=== PATIENT | female | born 1945 | race Caucasian/White ===

== ENCOUNTER 2019-12-05 13:39 | Outpatient (CLI) | payer MEDICARE, BC, SELFPAY ==
--- NOTE | 2019-12-05 13:48 | MM_ITS ---
WS: [id number] SCREENING DIGITAL MAMMOGRAM WITH CAD HISTORY: SCREENING COMPARISON: 10/27/2018, 10/20/2017 and 09/18/2015 Bilateral CC and MLO views submitted. Computer aided detection analyzed. Breast composition: There are scattered areas of fibroglandular density. Seen on the LEFT MLO project ion is a 9 mm rounded nodule posteriorly in the upper breast. May be a benign lymph node. Not definit wale seen on prior studies and is slightly more rounded than a lymph node and without a fatty hilum. O therwise benign calcifications in each breast. MM/[id number] IMPRESSION: BI-RADS: 0-Incomplete: Need additional imaging evaluation FOLLOW UP: Need Additional Imaging LEFT breast: Spot compression views ( MLO). True ML. Ultrasound to follow if ab normality persists.
== END 2019-12-05 13:40 | disposition home or self-care (01) ==
LOC: RADSHAW 13:45
PROVIDERS: PCP Nurse Practitioner Family; Visit Provider Nurse Practitioner Family
DX: Z12.31 Encounter for screening mammogram for malignant neoplasm of breast (principal); N63.20 Unspecified lump in the left breast, unspecified quadrant
CPT/HCPCS: 77067

== ENCOUNTER 2019-12-21 14:06 | Outpatient (CLI) | payer MEDICARE, BC, SELFPAY ==
--- NOTE | 2019-12-21 14:14 | US_ITS ---
WS: [id number] ADDITIONAL VIEWS LEFT MAMMOGRAM LEFT BREAST ULTRASOUND HISTORY: ABNORMAL MAMMOGRAM COMPARISON: 12/05/2019 and 10/27/2018 and 10/20/2017 LEFT MAMMOGRAM: Spot compression views and true ML. Additional views were obtained. Soft tissue nodule against the posterior LEFT chest wall is probably a lymph node. There is now evidence for fatty hilum. The lymph node remains rounded. Ultrasound will also be performed. LEFT BREAST ULTRASOUND 2-D and color Doppler imaging submitted. Ultrasound directed to the superior breast towards the axillary tail. There are several benign-appear ing lymph nodes in the axillary tail. No suspicious mass or shadowing. US/US breast LT limited* [id number] IMPRESSION: BI-RADS: 2-Benign FOLLOW UP: 1 Year Follow-up
== END 2019-12-21 14:07 | disposition home or self-care (01) ==
LOC: RADSHAW 14:10
PROVIDERS: PCP Nurse Practitioner Family; Visit Provider Nurse Practitioner Family
DX: R92.8 Other abnormal and inconclusive findings on diagnostic imaging of breast (principal); N63.20 Unspecified lump in the left breast, unspecified quadrant
CPT/HCPCS: 76642; 77065

== ENCOUNTER 2021-01-03 13:47 | Outpatient (CLI) | payer MEDICARE, BC, SELFPAY ==
--- NOTE | 2021-01-03 13:53 | MM_ITS ---
WS: [id number] BILATERAL SCREENING DIGITAL MAMMOGRAM WITH CAD HISTORY: SCREEN COMPARISON: 12/21/2019 and 12/05/2019 and 10/27/2018 Bilateral CC and MLO views submitted. Computer aided detection analyzed. Breast composition: There are scattered areas of fibroglandular density. No suspicious masses, microc alcifications or architectural distortion. Benign calcifications in each breast. MM/[id number] IMPRESSION: BI-RADS: 2-Benign FOLLOW UP: 1 Year Follow-up
== END 2021-01-03 13:48 | disposition home or self-care (01) ==
LOC: RADSHAW 13:48
PROVIDERS: PCP Nurse Practitioner Family; Visit Provider Nurse Practitioner Family
DX: Z12.31 Encounter for screening mammogram for malignant neoplasm of breast (principal)
CPT/HCPCS: 77067

== ENCOUNTER 2022-07-02 04:48 | Emergency (ER) | payer MEDICARE, BC, SELFPAY ==
--- NOTE | 2022-07-02 04:54 | XRR_ITS ---
PROCEDURE INFORMATION: Exam: XR Chest Exam date and time: 07/02/2022 4:59 AM Age: 76 years old Clinical indication: Chest pressure; Patient HX: C/O chest pain; Additional info: Cp TECHNIQUE: Imaging protocol: Radiologic exam of the chest. Views: 1 view. COMPARISON: No relevant prior studies available. FINDINGS: Lungs: Unremarkable. No consolidation. Pleural spaces: Unremarkable. No pleural effusion. No pneumothorax. Heart/Mediastinum: Unremarkable. No cardiomegaly. Bones/joints: Unremarkable. XR/XR chest 1V portable [id number] IMPRESSION: No acute findings.
[2022-07-02 04:55] VITALS: BP 184/88; PULSE 96; RESP 18; TEMP 36.4; O2SAT 93; BMI 32.1
[2022-07-02 05:00] VITALS: BP 179/90; PULSE 93; RESP 19; O2SAT 92
--- NOTE | 2022-07-02 05:02 | ED_ITS ---
Documented by User: Saritha Wilkins MD 07/02/22 18:25 HPI - Chest Pain General: Chief Complaint: Chest Pain Stated Complaint: Chest Pains\Shingles Shot today Time Seen by Provider: 07/02/22 04:51 Source: patient Mode of arrival: ambulatory Limitations: no limitations History of Present Illness: 76-year-old female states she received her shingles vaccine yesterday at 3 PM states that tonight she had woken up 2 hours ago she states she had felt like she had chills along with some shakes she is also been having some episodes of chest pain states she had 4-5 episodes since 3 lasting anywhere from a few minutes up to 20 states the pains of been, mild pain in the center of her chest denies any fever cough denies any worsening proving factors she is currently pain-free. Associated symptoms: Deny abdominal pain, dyspnea, nausea or vomiting Review of Systems Const: Reports: chills, body aches and fatigue ENMT: Denies: throat pain or dental pain Card: Reports: chest pain Resp: Denies: dyspnea GI: Denies: abdominal pain, nausea, vomiting or diarrhea Musc: Denies: neck pain or back pain Skin/Breast: Denies: rash Neuro: Denies: headache(s) PFSH ED PFSH: Medical History No pertinent past medical history Social History Substance/Drug Use: never Physical Exam Const: COMMON NORMALS: no acute distress, patient oriented x3 and healthy appearing HENMT: COMMON NORMALS: normocephalic and atraumatic HEAD & SCALP: normocephalic and atraumatic Eye: COMMON NORMALS: conjunctivae normal CONJUNCTIVA: Yes conjunctivae normal Neck/C-Spine: COMMON NORMALS: full ROM and supple Chest: COMMONS NORMALS: normal inspection of the chest and normal palpation of entire chest wall Resp: COMMON NORMALS: normal respiratory effort, No retractions, No use of accessory muscles and clear to auscultation bilaterally AUSCULTATION: clear to auscultation bilaterally Cardio: COMMON NORMALS: regular rate, regular rhythm and No murmurs present (Cardio) RATE: regular rate RHYTHM: regular rhythm GI: COMMON NORMALS: Normal to inspection, nondistended, normoactive bowel cooper nds present, Soft to palpation, non-tender and no masses PALPATION: Yes Soft to palpation Extremity: COMMON NORMALS: normal to inspection and full ROM Neuro: COMMON NORMALS: patient oriented x3, moves all extremities and no focal motor deficits Psych: COMMON NORMALS: mental status grossly normal, Normal thought process present and cooperative THOUGHT PROCESS: Normal thought process present Skin: COMMON NORMALS: no rashes or lesions noted and no wounds GENERAL SKIN EXAM: no rashes or lesions noted Course Vital Signs: Vital signs: Vital Signs Temperature 97.6 F 07/02/22 04:55 Pulse Rate 74 07/02/22 06:00 Respiratory Rate 16 07/02/22 06:00 Blood Pressure 147/68 07/02/22 06:00 Pulse Oximetry 93 07/02/22 06:00 Oxygen Delivery Me thod Room Air 07/02/22 06:00 MDM - Chest Pain Lab Data 07/02/22 05:09 07/02/22 05:09 Radiology Impressions Chest X-Ray 07/02/22 04:54 IMPRESSION: No acute findings. Laboratory Results WBC 9.5 10^3/uL (4.0-10.0) 07/02/22 05:09 RBC 5.11 10^6/uL (4.1-5.3) 07/02/22 05:09 Hgb 15.4 g/dL (11.5-15.3) H 07/02/22 05:09 Hct 46.3 % (37.0-47.0) 07/02/22 05:09 MCV 90.6 fl (81-99) 07/02/22 05:09 MCH 30.1 pg (28.0-34.0) 07/02/22 05:09 MCHC 33.3 g/dL (30.0-36.0) 07/02/22 05:09 RDW 12.8 % (12.1-15.1) 07/02/22 05:09 Plt Count 188 10^3/cmm (130-400) 07/02/22 05:09 MPV 9.0 fL (7.4-10.4) 07/02/22 05:09 Neut % (Auto) 68.9 % 07/02/22 05:09 Lymph % (Auto) 17.9 % 07/02/22 05:09 Cassia % (Auto) 7.7 % 07/02/22 05:09 Eos % (Auto) 4.6 % 07/02/22 05:09 Baso % (Auto) 0.6 % 07/02/22 05:09 Neut # (Auto) 6.55 10^3/uL (1.8-7.7) 07/02/22 05:09 Lymph # (Auto) 1.7 10^3/uL (0.8-4.8) 07/02/22 05:09 Cassia # (Auto) 0.7 10^3/uL (0.2-0.9) 07/02/22 05:09 Eos # (Auto) 0.4 10^3/uL (0.0-0.8) 07/02/22 05:09 Baso # (Auto) 0.1 10^3/uL (0.0-0.1) 07/02/22 05:09 Nucleated RBC % (auto) 0 % 07/02/22 05:09 Nucleated RBCs # 0.0 /100WBC 07/02/22 05:09 PT 13.20 SECONDS (12.1-14.9) 07/02/22 05:09 INR 0.98 (0.8-1.2) 07/02/22 05:09 Sodium 133 mmol/L (136-145) L 07/02/22 05:09 Potassium 3.6 mmol/L (3.5-5.1) 07/02/22 05:09 Chloride 95 mmol/L (98-107) L 07/02/22 05:09 Carbon Dioxide 24 mmol/L (22-29) 07/02/22 05:09 Anion Gap 17.6 (5-19) 07/02/22 05:09 BUN 18 mg/dL (8-23) 07/02/22 05:09 Creatinine 0.6 mg/dL (0.5-0.9) 07/02/22 05:09 GFR Calculation Not Reportable 07/02/22 05:09 Glucose 205 mg/dL (65-115) H 07/02/22 05:09 Calculated Osmolality 284 mOsm/kg (285-295) L 07/02/22 05:09 Calcium 8.4 mg/dL (8.5-10.5) L 07/02/22 05:09 Total Bilirubin 1.0 mg/dL (0.15-1.2) 07/02/22 05:09 AST 21 U/L (0-32) 07/02/22 05:09 ALT 22 U/L (0-33) 07/02/22 05:09 Alkaline Phosphatase 75 U/L (35-105) 07/02/22 05:09 Troponin T Baseline 10 ng/L (0-10) 07/02/22 05:09 Troponin T 120 Minute 9.26 ng/L (0-10) 07/02/22 06:47 Delta Troponin T -0.74 ABS# (0-10) L 07/02/22 06:47 Total Protein 6.9 g/dL (6.6-8.7) 07/02/22 05:09 Albumin 4.2 g/dL (3.5-5.2) 07/02/22 05:09 Globulin 2.7 g/dL (1.3-4.6) 07/02/22 05:09 EKG Data EKG 1: I personally reviewed and interpreted this EKG as follows: EKG interpretation date: 07/02/22 EKG interpretation time: 05:04 Interpretation: nsr hr [address] elevation qrs 129 qtc 427 Discharge Plan Discharge Patient Disposition: Home Clinical Impression: Chest pain, Elevated blood pressure reading Prescriptions: New isosorbide mononitrate 30 mg tablet extended release 24 hr 30 mg PO DAILY Qty: 30 0RF No Action furosemide 40 mg tablet 40 mg PO DAILY PRN (Reason: Edema) glipizide 10 mg tablet extended release 24hr 20 mg PO QAM cyanocobalamin (vitamin B-12) 1,000 mcg/mL solution 1,000 mcg IM Q30D Flovent HFA 220 mcg/actuation HFA aerosol inhaler 2 puff INHALATION BID metronidazole 0.75 % gel 1 applic TOPICAL BID Xigduo XR 5-1,000 mg tablet, IR - ER, biphasic 24hr 1 tab PO DAILY Discharge Orders: Discharge ED (Routine); Ordered 07/02/22 Ordered By: Vlad Ramires Referrals: Shirley Chen APRN [Primary Care Provider] - Discharge Diet: Usual diet Discharge Activity: Resume usual activity Patient Instructions: Opioid Safety, Pain Management Activity Restrictions/Additional Instructions: You were seen today for chest pain. Your EKG did not show any acute changes and cardiac enzymes are negative. Recommend that you start isosorbide mononitrate for elevated blood pressure and protection of the heart. Normally we would recommend aspirin but since you had stated you are allergic we will not be able to do that. We will set you up for an outpatient Lexiscan sestamibi stress test. You should follow-up with your primary care doctor after labs completed. If you have further chest pain or discomfort return to the emergency room. Sign Out Sign Out Data: Patient Sign Out occurred on 07/02/22 at 06:21. Patient's care was discussed, and care was transferred from to Vlad Ramires DO. Coding Level of Care Code ED Nursery School Attendant for Chg Fwd Documented by User: Vlad Ramires DO 07/02/22 08:26 HPI - Chest Pain General: Chief Complaint: Chest Pain Stated Complaint: Chest Pains\Shingles Shot today Time Seen by Provider: 07/02/22 04:51 [facility] ED PFSH: Medical History No pertinent past medical history Social History Substance/Drug Use: never Course Vital Signs: Vital signs: Vital Signs Temperature 97.6 F 07/02/22 04:55 Pulse Rate 74 07/02/22 06:00 Respiratory Rate 16 07/02/22 06:00 Blood Pressure 147/68 07/02/22 06:00 Pulse Oximetry 93 07/02/22 06:00 Oxygen Delivery Me thod Room Air 07/02/22 06:00 MDM - Chest Pain Medical Decision Making 76-year-old female care assumed at change of shift from Dr. Wilkins. She has not had any further episodes of chest discomfort. She has not had any episodes prior to last night. EKG does not show any acute changes. Her blood pressure is elevated when she arrives. I am going to start her on isosorbide mononitrate 30 mg daily. Would like to start the patient on aspirin however she tells me she is allergic to it. Also note she has a butterfly rash she has been being tr eated for rosacea with oral and topical medications. Did not see it initially encouraged her to follow-up with her primary care doctor midlevel and have at least a bare minimum screening done for rheumatologic disorders as a cause of the rash. We will set her up for an outpatient Lexiscan sestamibi stress test. Follow-up with your primary care doctor. Return if she has further problems. Medical Records I reviewed the patient's medical records. Lab Data I reviewed the patient's lab results. 07/02/22 05:09 07/02/22 05:09 Radiology Impressions Chest X-Ray 07/02/22 04:54 IMPRESSION: No acute findings. Laboratory Results WBC 9.5 10^3/uL (4.0-10.0) 07/02/22 05:09 RBC 5.11 10^6/uL (4.1-5.3) 07/02/22 05:09 Hgb 15.4 g/dL (11.5-15.3) H 07/02/22 05:09 Hct 46.3 % (37.0-47.0) 07/02/22 05:09 MCV 90.6 fl (81-99) 07/02/22 05:09 MCH 30.1 pg (28.0-34.0) 07/02/22 05:09 MCHC 33.3 g/dL (30.0-36.0) 07/02/22 05:09 RDW 12.8 % (12.1-15.1) 07/02/22 05:09 Plt Count 188 10^3/cmm (130-400) 07/02/22 05:09 MPV 9.0 fL (7.4-10.4) 07/02/22 05:09 Neut % (Auto) 68.9 % 07/02/22 05:09 Lymph % (Auto) 17.9 % 07/02/22 05:09 Cassia % (Auto) 7.7 % 07/02/22 05:09 Eos % (Auto) 4.6 % 07/02/22 05:09 Baso % (Auto) 0.6 % 07/02/22 05:09 Neut # (Auto) 6.55 10^3/uL (1.8-7.7) 07/02/22 05:09 Lymph # (Auto) 1.7 10^3/uL (0.8-4.8) 07/02/22 05:09 Cassia # (Auto) 0.7 10^3/uL (0.2-0.9) 07/02/22 05:09 Eos # (Auto) 0.4 10^3/uL (0.0-0.8) 07/02/22 05:09 Baso # (Auto) 0.1 10^3/uL (0.0-0.1) 07/02/22 05:09 Nucleated RBC % (auto) 0 % 07/02/22 05:09 Nucleated RBCs # 0.0 /100WBC 07/02/22 05:09 PT 13.20 SECONDS (12.1-14.9) 07/02/22 05:09 INR 0.98 (0.8-1.2) 07/02/22 05:09 Sodium 133 mmol/L (136-145) L 07/02/22 05:09 Potassium 3.6 mmol/L (3.5-5.1) 07/02/22 05:09 Chloride 95 mmol/L (98-107) L 07/02/22 05:09 Carbon Dioxide 24 mmol/L (22-29) 07/02/22 05:09 Anion Gap 17.6 (5-19) 07/02/22 05:09 BUN 18 mg/dL (8-23) 07/02/22 05:09 Creatinine 0.6 mg/dL (0.5-0.9) 07/02/22 05:09 GFR Calculation Not Reportable 07/02/22 05:09 Glucose 205 mg/dL (65-115) H 07/02/22 05:09 Calculated Osmolality 284 mOsm/kg (285-295) L 07/02/22 05:09 Calcium 8.4 mg/dL (8.5-10.5) L 07/02/22 05:09 Total Bilirubin 1.0 mg/dL (0.15-1.2) 07/02/22 05:09 AST 21 U/L (0-32) 07/02/22 05:09 ALT 22 U/L (0-33) 07/02/22 05:09 Alkaline Phosphatase 75 U/L (35-105) 07/02/22 05:09 Troponin T Baseline 10 ng/L (0-10) 07/02/22 05:09 Troponin T 120 Minute 9.26 ng/L (0-10) 07/02/22 06:47 Delta Troponin T -0.74 ABS# (0-10) L 07/02/22 06:47 Total Protein 6.9 g/dL (6.6-8.7) 07/02/22 05:09 Albumin 4.2 g/dL (3.5-5.2) 07/02/22 05:09 Globulin 2.7 g/dL (1.3-4.6) 07/02/22 05:09 Discharge Plan Discharge Patient Disposition: Home Clinical Impression: Chest pain, Elevated blood pressure reading Prescriptions: New isosorbide mononitrate 30 mg tablet extended release 24 hr 30 mg PO DAILY Qty: 30 0RF No Action furosemide 40 mg tablet 40 mg PO DAILY PRN (Reason: Edema) glipizide 10 mg tablet extended release 24hr 20 mg PO QAM cyanocobalamin (vitamin B-12) 1,000 mcg/mL solution 1,000 mcg IM Q30D Flovent HFA 220 mcg/actuation HFA aerosol inhaler 2 puff INHALATION BID metronidazole 0.75 % gel 1 applic TOPICAL BID Xigduo XR 5-1,000 mg tablet, IR - ER, biphasic 24hr 1 tab PO DAILY Discharge Orders: Discharge ED (Routine); Ordered 07/02/22 Ordered By: Vlad Ramires Referrals: Shirley Chen APRN [Primary Care Provider] - Discharge Diet: Usual diet Discharge Activity: Resume usual activity Patient Instructions: Opioid Safety, Pain Management Activity Restrictions/Additional Instructions: You were seen today for chest pain. Your EKG did not show any acute changes and cardiac enzymes are negative. Recommend that you start isosorbide mononitrate for elevated blood pressure and protection of the heart. Normally we would recommend aspirin but since you had stated you are allergic we will not be able to do that. We will set you up for an outpatient Lexiscan sestamibi stress test. You should follow-up with your primary care doctor after labs completed. If you have further chest pain or discomfort return to the emergency room. Sign Out Sign Out Data: Patient Sign Out occurred on 07/02/22 at 06:21. Patient's care was discussed, and care was transferred from to Vlad Ramires DO. Coding Level of Care Code ED Nursery School Attendant for Bonifacio Hilario
--- NOTE | 2022-07-02 05:04 | ECG_ITS ---
[facility] Test Date: 2022-07-02 Pat Name: Oz Quintero Department: Room: Gender: Female Financial Consultant: : 1945 Requested By: Saritha Wilkins Order Number: [id number] Reading MD: Kerwin Watt M.D. Measurements Intervals [place] Rate: 90 P: 72 NC: 165 QRS: 35 QRSD: 129 T: -4 QT: 380 QTc: 465 Interpretive Statements SINUS RHYTHM INDETERMINATE AXIS RIGHT BUNDLE BRANCH BLOCK [120+ ms QRS DURATION, UPRIGHT V1, 40+ ms S IN I/aVL/V4/V5/V6] SEPTAL MYOCARDIAL INFARCTION , PROBABLY OLD [40+ ms Q WAVE IN V1/V2] MODERATE T-WAVE ABNORMALITY, CONSIDER LATERAL ISCHEMIA [-0.1+ mV T-WAVE IN I/aVL/V5/V6] MODERATE T-WAVE ABNORMALITY, CONSIDER INFERIOR ISCHEMIA [-0.1+ mV T-WAVE IN II/aVF] No previous ECG available for comparison Electronically Signed On 07-02-2022 16:14:01 CDT by Kerwin Watt M.D. [id number]
[2022-07-02 05:14] LABS: Basophils # 0.1 10^3/uL (0.0-0.1); Basophils % 0.6 %; Eosinophils # 0.4 10^3/uL (0.0-0.8); Eosinophils % 4.6 %; Hematocrit 46.3 % (37.0-47.0); Hemoglobin 15.4 g/dL (11.5-15.3); Lymphocytes # 1.7 10^3/uL (0.8-4.8); Lymphocytes % 17.9 %; Mean Corpuscular HGB Conc 33.3 g/dL (30.0-36.0); Mean Corpuscular Hemoglobin 30.1 pg (28.0-34.0); Mean Corpuscular Volume 90.6 fl (81-99); Monocytes # 0.7 10^3/uL (0.2-0.9); Monocytes % 7.7 %; Neutrophils # 6.55 10^3/uL (1.8-7.7); Neutrophils % 68.9 %; Nucleated Red Blood Cells % 0 %; Platelet Count 188 10^3/cmm (130-400); Red Blood Count 5.11 10^6/uL (4.1-5.3); Red Cell Distribution Width 12.8 % (12.1-15.1); White Blood Count 9.5 10^3/uL (4.0-10.0)
[2022-07-02 05:26] LABS: INR 0.98 (0.8-1.2)
[2022-07-02 05:33] LABS: Alanine Aminotransferase 22 U/L (0-33); Albumin Level 4.2 g/dL (3.5-5.2); Alkaline Phosphatase 75 U/L (35-105); Anion Gap 17.6 (5-19); Aspartate Amino Transferase 21 U/L (0-32); Blood Urea Nitrogen 18 mg/dL (8-23); Calcium 8.4 mg/dL (8.5-10.5); Carbon Dioxide 24 mmol/L (22-29); Chloride 95 mmol/L (98-107); Globulin 2.7 g/dL (1.3-4.6); Glucose 205 mg/dL (65-115); Osmolality Calculated 284 mOsm/kg (285-295); Potassium 3.6 mmol/L (3.5-5.1); Sodium 133 mmol/L (136-145); Total Protein 6.9 g/dL (6.6-8.7); Troponin(5th) Baseline 10 ng/L (0-10)
[2022-07-02 06:00] VITALS: BP 147/68; PULSE 74; RESP 16; O2SAT 93
--- NOTE | 2022-07-02 06:40 | ECG_ITS ---
[facility] Test Date: 2022-07-02 Pat Name: Oz Quintero Department: Room: Gender: Female Admitting Manager: : 1945 Requested By: Saritha Wilkins Order Number: [id number] Reading MD: Kerwin Watt M.D. Measurements Intervals [place] Rate: 73 P: 79 ID: [id number] QRS: 25 QRSD: 133 T: 55 QT: 442 QTc: 488 Interpretive Statements SINUS RHYTHM INDETERMINATE AXIS RIGHT BUNDLE BRANCH BLOCK [120+ ms QRS DURATION, UPRIGHT V1, 40+ ms S IN I/aVL/V4/V5/V6] POSSIBLE SEPTAL MYOCARDIAL INFARCTION , PROBABLY OLD [30 ms Q WAVE IN V1/V2] Compared to ECG 07/02/2022 05:04:53 T-wave abnormality no longer present Possible ischemia no longer present Myocardial infarct finding still present Electronically Signed On 07-02-2022 16:17:16 CDT by Kerwin Watt M.D. [id number]
[2022-07-02 07:22] LABS: Troponin 5 2HR 9.26 ng/L (0-10)
[2022-07-02 07:26] LABS: Troponin 5 2HR Delta -0.74 ABS# (0-10)
== END 2022-07-02 09:12 | disposition home or self-care (01) ==
PROVIDERS: Emergency Medicine; Emergency Provider Family Medicine; PCP Nurse Practitioner Family
DX: R07.9 Chest pain, unspecified (principal); R03.0 Elevated blood-pressure reading, without diagnosis of hypertension
CPT/HCPCS: 71045; 80053; 84484; 85025; 85610; 93005; 99285

== ENCOUNTER 2022-09-22 10:44 | Outpatient (CLI) | payer MEDICARE, BC, SELFPAY ==
--- NOTE | 2022-09-22 11:34 | MM_ITS ---
WS: [id number] VIEWS: MLO and CC views both breasts. 3D digital tomosynthesis is also included in this exam. Comparison made with prior exam of 09/18/2015, 10/27/2018, 12/05/2019, 01/03/2021.. Findings: There was no sign of mass, architectural distortion or suspicious calcification in either breast. Th ere are scattered areas of fibroglandular density MM/[id number] Impression: BI-RADS: 2-Benign finding. FOLLOW-UP: 1 Year Follow-up This mammogram was also analyzed by the Computer Aided Detection System R2 Imag e Earth Science Technician.
== END 2022-09-22 10:45 | disposition home or self-care (01) ==
PROVIDERS: PCP Nurse Practitioner Family; Visit Provider Nurse Practitioner Family
DX: Z12.31 Encounter for screening mammogram for malignant neoplasm of breast (principal)
CPT/HCPCS: 77063; 77067

== ENCOUNTER 2024-09-24 08:36 | Emergency (ER) | payer MEDICARE, BC, SELFPAY ==
[2024-09-24] VITALS (8 sets, daily range): BP systolic 150–191; BP diastolic 72–93; PULSE 79–95; RESP 17–20; TEMP 36.7; O2SAT 92–95; BMI 30.6
--- OUTSIDE RECORDS SUMMARY | 2024-09-24 08:44 | XMS_ITS | Patient Health Record ---
Author Organization [facility] Address [address] [place] [address] Care Team Providers Care Rectification Printer Name Role Phone April Albertina ALEGRE Primary Care Provider Unavail able Tamiko Dwyer Unavailable [phone] Allyn Crandall Unavailable [phone] Marly Romeo Unavailable [phone] Allergies Allergen (clinical drug ingredient) Drug/Non Drug Allergy documented on EMR Reaction Allergy Type Onset Date Status aspirin Aspirin , Urticaria (disorder) , Drug Allergy Active cefazolin Cefazolin , Drug Allergy Active ciprofloxacin Ciprofloxacin , , Drug Allergy Active erythromycin Erythromycin , , Drug Allergy A ctive Penicillin Unknown Drug Allergy Active Substance with sulfonamide structure and antibacterial mechanism of action (substance) Sulfa Antibiotics Unknown Drug Allergy Active Results Component Value Reference Range Flag Notes Glucometer WBG--[id number] Reviewed date:11/09/2023 03:36:04 PM Interpretation: Performing Lab: Notes/Report: Glucometer WBG 123 65-110 MG/DL HI See Docu mentation~Meter: [id number]~Mold Carpenter: [id number] TEJ RUDD Reason For Referral Reason COPD Diagnosis 1 Chronic obstructive pulmonary disease, unspecified COPD type (J44.9) Referring Provider First Name [place] Referring Provider Last Name [facility] Referring Provider Speciality Urgent Car e Referred Organization [facility] Referred Provider Tamiko Dwyer Referred Address [address] [place] [phone], Referred Provider Specialty Nurse Aaliyah ribeiro Referral Priority Routine Medications Medication SIG (Take, Route, Frequency, Duration) Notes Start Date End Date Status glipiZIDE ER 10 MG Tablet Extended Release 24 Hour TAKE ONE TABLET BY MOUTH TWICE DAILY AT breakfast AND LUNCH Oral; Duration: 90 Active Reglan 10 MG Tablet 1 tablet as directed Orally once; Duration: 1 day 10/25/2023 Active Xigduo XR 5-1000 MG Tablet Extended Release 24 Hour TAKE ONE TABLET BY MOUTH ONCE a DAY Oral; Duration: 30 Active EpiPen 2-Marcello 0.3 MG/0.3ML Solution Auto-injector as directed Injection as directed prn severe allergy reaction; Duration: 1 days 09/16/2023 Active Cyanocobalamin 1000 MCG/ML Solution INJECT 1ML INTRAMUSCULARLY MONTHLY Injection; Duration: 90 Active Immunizations Vaccine Route Administration Date Status Comme nts Influenza (whole), CPT 87653 Inactive Unknown 12/19/2016 Administered Influenza (whole), CPT 64804 Inactive Unknown 01/01/2017 Administered Influenza (whole), CPT 51008 Inactive Unknown 01/04/2017 Administered Influenza (whole), CPT 96143 Inactive Unknown 12/20/2017 Administered Influenza (whole), CPT 19887 Inactive Unknown 11/15/2018 Administered Influenza, high dose seasonal Unknown 12/18/2015 Admini stered Pneumococcal conjugate PCV 13 Unknown 12/24/2014 Admini stered Social History Tobacco Use: Social History Observation Description Date Details (start date - stop date) Never Smoker NA - NA Social History Drugs/Alcohol: Social Info Question Answer Notes Alcohol Screen (Audit-C) Did you have a drink containing alcohol in the past year? No Points 0 Interpretation Negative Tobacco Use: Social Info Question Answer Notes xTobacco Use/Smoking Are you a nonsmoker Additional Details Category Social Info Options Details zzMigrated Social History Migrated Social History Smoking Status:Never smoked tobacco (finding) Problems Problem Type SNOMED Code ICD Code Onset Dates Problem Status W/U Status Risk Notes Problem COPD - Chronic obstructive pulmonary disease (93723335) Chronic obstructive pulmonary disease, unspecified COPD type (J44.9) Active confirmed Problem Vitamin B 12 deficiency (E53.8) Active confirmed Problem History of adenomatous polyp of colon (059498149) History of adenomatous polyp of colon (Z86.010) Active confirmed Vital Signs Heart Rate 75 /min 10/25/2023 Temperature 96.6 degrees Fahrenheit 10/25/2023 Respiratory Rate 18 /min 10/25/2023 Height-cm 163.83 cm 10/25/2023 Oximetry 96 % 10/25/2023 Blood pressure diastolic 64 mm Hg 10/25/2023 Weight-kg 88.81 kg 10/25/2023 Height 64.5 in 10/25/2023 Blood pressure systolic 118 mm Hg 10/25/2023 Weight 195.8 lbs 10/25/2023 BMI 33.09 kg/m2 10/25/2023 Encounters Encounter Location Date Provider Diagnosis [facility] [address] [place] [address] 11/09/2023 Allyn Crandall [facility] [address] [place] [address] 10/25/2023 Marly Romeo Preprocedural examination Z01.818 ; Screening for colon cancer Z12.11 ; History of adenomatous polyp of colon Z86.010 and Family history of colon cancer Z80.0 [facility] [address] [place] [address] 11/01/2023 Tamiko Batterton Vitamin B 12 deficiency E53.8 [facility] [address] [place] [address] 12/15/2023 Tamiko Batterton Vitamin B 12 deficiency E53.8 [facility] [address] [place] [address] 01/31/2024 Tamiko Batterton Vitamin B 12 deficiency E53.8 [facility] [address] [place] [address], [place] [address] 08/08/2024 Tamiko Batterton Vitamin B 12 deficiency E53.8 [facility] [address] [place] [address] 11/15/2023 Allyn Crandall Assessments Encounter Date Diagnosis (ICD Code) Assessment Notes Treatment Notes Treatment Clinical Notes Section Notes 10/25/2023 Preprocedural examination (ICD-10 - Z01.818) The patient has a prerequisite risk factors for development of colon cancer. I have discussed the options of diagnostic testing with their advantages and disadvantages. I have recommended da screening colonoscopy with possible biopsy and polypectomy. Risks and Benefits: The benefits, risks, and complications were presented to pt. The patient is aware of the risk of bleeding, perforation, infection, and anesthetic complications related to colonoscopy. The patient is aware that although colonoscopy is an accurate procedure, it does have some limitations. As a result, some lesions, including cancer may be missed by colonoscopy. Ample time was given to answer all questions. Instructions given for the bowel prep. Follow up will be determined after the colonoscopy. Refer back to PCP. 10/25/2023 Screening for colon cancer (ICD-10 - Z12.11) 11/01/2023 Vitamin B 12 deficiency (ICD-10 - E53.8) 12/15/2023 Vitamin B 12 deficiency (ICD-10 - E53.8) 01/31/2024 Vitamin B 12 deficiency (ICD-10 - E53.8) 08/08/2024 Vitamin B 12 deficiency (ICD-10 - E53.8) 10/25/2023 History of adenomatous polyp of colon (ICD-10 - Z86.010) 10/25/2023 Family history of colon cancer (ICD-10 - Z80.0) 10/25/2023 Other Colonoscopy: Before Your Procedure material was printed, Learning About Foods That Are Good Sources of Fiber material was printed Plan Of Treatment Pending Test Test Name Order Date Colonoscopy, High Risk Screening-[id number] 0 10/25/2023 Next Appt Details Provider Name:Ignacio Moise, 09/28/2024 10:20:00 AM, [address] [place] [address], [phone], Insurance Providers Payer Name Payer Address Payer Phone Subscriber Number Group Number Insured Name Patient Relationship to Insured Coverage Start Date Coverage End Date [place] Medicare [address] [place] [phone] [id number] Oz Quintero Self - patient is the insured BCBS Supplement [address] [place] [address] [id number] Oz Quintero Self - patient is the insured Medications Administered Medication Instructions Date of Administration Dosage Notes B12 10/21/2021 1000 ug [facility]: [id number] Medication brought with patient to clinic from pharmacy. Patient tolerated well, advised to wait 20 min at clinic B12 11/20/2021 1000 ug [facility]: [phone] Medication brought with patient to clinic from pharmacy. Patient tolerated well, advised to wait 20 min at clinic Cyanocobalamin 02/03/2022 1000 ug [facility]: [phone] Medication brought with patient to clinic from pharmacy. Patient tolerated well, advised to wait 20 min at clinic Benadryl 09/16/2023 50 [address] [facility] [phone] -21 pt tolerated well/instructed to wait 20 min DEPO-Medrol 09/16/2023 40 mg [facility] 96318-231 3-01 pt tolerated well/instructed to wait 20 min dexAMETHasone 09/16/2023 4 mg [facility] 90691-6 423-00 pt tolerated well/instructed to wait 20 min IM - Patient Supplied Med 05/06/2021 vitamin b12 given to patient in right deltoid, patient tolerated well, [id number] IM - Patient Supplied Med 06/09/2021 patient supplied own vitamin B12, given in Left deltoid, patient tolerated well. [id number] IM - Patient Supplied Med 07/14/2021 patient supplied cyanocobalamin 1000mcg/ml, given in left deloid patient tolerated well, [id number] IM - Patient Supplied Med 08/12/2021 VITAMIN B12 1000MCG/ML GIVEN IN LEFT DELTIOD, PATIENT TOLERATED WELL. [id number] IM - Patient Supplied Med 09/15/2021 cyanocobalamin 1000mcg given IM in left deltoid, patient tolerated well. [id number] IM - Patient Supplied Med 12/24/2021 vitamin b12 given IM in right arm patient tolerated well. [id number] IM - Patient Supplied Med 03/12/[address] [facility] [address]-1 0 Patient tolerated well IM - Patient Supplied Med 09/14/2022 vitamin b12 1000 mcg given IM in left deltoid. Patient tolerated well. IM - Patient Supplied Med 11/17/2022 vitamin b12 1000mcg/ml given IM in left deltoid. Patient tolerated well. [id number] exp-04/2025 IM - Patient Supplied Med 12/21/2022 1000mcg b12 give n in left deltoid. Patient tolerated well. IM - Patient Supplied Med 02/08/2023 Vitamin b12 1000 mcg given IM in left deltoid. Patient tolerated well. IM - Patient Supplied Med 06/15/2023 vitamin b12 2000 mcg given IM in left hip. Patient tolerated well. IM - Patient Supplied Med 08/05/2023 2000MCG OF VITAM IN B12 GIVEN im IN LEFT HIP. PATIENT TOLERATED WELL. IM - Patient Supplied Med 09/22/2023 1000mcg B12 give n IM in left deltoid. Patient tolerated well. IM - Patient Supplied Med 11/01/2023 vitamin b12 1000 mcg given IM in left deltoid. Patient tolerated well. IM - Patient Supplied Med 12/15/2023 vitamin b12 100m g given IM in left deltoid, patient supplied own injection. Patient tolerated well. IM - Patient Supplied Med 01/31/2024 vitamin [id number] cg/ml goven IM in right deltoid. Patient tolerated well. IM - Patient Supplied Med 08/08/2024 Vitamin B12 1000 mcg given IM in left deltoid, Patient tolerated well. Cyanocobalamin 05/07/2022 1000 ug Patient br ought vial from pharmacy for injection/pt tolerated well/instructed to wait 20 min Vitamin B12 08/04/2022 1000 ug Patient broug ht vial with her from pharmacy/tolerated well/instructed to wait 20 min Cyanocobalamin 04/30/2023 2000 ug vials brou ght to clinic by patient from pharmacy/pt tolerated well/instructed to wait 20 min Medical (General) History Medical History History ICD Code Arthritis Cobalamin deficiency Diabetes Disorder of the peripheral nervous syste m Hearing loss Asthma Seasonal allergic rhinitis Surgical History Surgery Date(Month/Year) CEIOLI both eyes Cholecystectomy 2017 Hysterectomy Thyroid Nodule Excision Hospitalization History Reason Date(Month/Year) child see surgery list
--- OUTSIDE RECORDS SUMMARY | 2024-09-24 08:44 | XMS_ITS | Patient Health Record ---
Author Organization [facility] [facility] Address [address] [place], [place] [address] Care Team Providers Care Primary Products Inspectors Name Role Phone Kaiden Ling MD Primary Care Provider Unavailrona Day MD, Chris Unavailable [phone] Nura Yañez DO Unavailable Allergies Allergen (clinical drug ingredient) Drug/Non Drug Allergy documented on EMR Reaction Allergy Type Onset Date Status ciprofloxacin Cipro Unknown Drug Allergy Act serafin Keflex Unknown Drug Allergy Active tetracycline tetracycline Unknown Drug Allergy A ctive erythromycin Unknown Drug Allergy Acti ve aspirin aspirin Unknown Drug Allergy Active penicillin Unknown Drug Allergy Active Reason For Referral No Information Medications Medication SIG (Take, Route, Frequency, Duration) Notes Start Date End Date Status montelukast 10 mg 1 tab orally once a day (in the evening) for 30 day(s) Active metFORMIN 500 mg 4 tabs orally once a day for 30 day(s) Active Flovent HFA CFC free 220 mcg/inh 1 puff inhaled 2 times a day for 30 day(s) Active nitrofurantoin macrocrystals 100 mg 1 cap orally BID, PRN bladder infection (prophylaxis) for 10 day(s) Active glipiZIDE 10 mg 1 tab orally BID for 30 day(s) Active Ventolin HFA CFC free 90 mcg/inh 2 puffs inhaled 4 times a day for 30 day(s) Active Problems Problem Type SNOMED Code ICD Code Onset Dates Problem Status W/U Status Risk Notes Problem Enthesopathy (98984927) Tendonitis, tendinitis (726.90) Active confirmed Problem Knee pain (39101286) Knee pain (719.46) Active confirmed Problem Displacement of lumbar intervertebral disc without myelopathy (62453888) Lumbar (w/out myelopathy) intervertebral disc disorder (722.10) Active confirmed Problem Lumbosacral spondylosis without myelopathy (57788487) Lumbosacral spondylosis without myelopathy (721.3) Active confirmed Problem Long-term drug therapy (358378539) LONG-TERM USE MEDS NEC (V58.69) Active confirmed r/o substance abuse Plan Of Treatment No Information Insurance Providers Payer Name Payer Address Payer Phone Subscriber Number Group Number Insured Name Patient Relationship to Insured Coverage Start Date Coverage End Date [employer] Medicare Part B Claims Department [address] [address] [place] [address] [id number] Oz Quintero Self - patient is the insured [facility] [address] [place] [address] [id number] Oz Quintero Self - patient is the insured Medical (General) History Medical History History ICD Code Diabetes mellitus Leg pain, left Frequent bladder infections Asthma Surgical History Surgery Date(Month/Year) Hysterectomy Dilation and curettage Thyroid nodule removed Hospitalization History Reason Date(Month/Year)
--- NOTE | 2024-09-24 08:50 | XRR_ITS ---
PROCEDURE INFORMATION: Exam: XR Chest Exam date and time: 09/24/2024 9:00 AM Age: 78 years old Clinical indication: Wheezing; Productive cough; SOB TECHNIQUE: Imaging protocol: Radiologic exam of the chest. Views: 2 views. COMPARISON: CR XR chest 1V portable [id number] 07/02/2022 4:59 AM FINDINGS: Lungs: Unremarkable. No consolidation. Pleural spaces: Unremarkable. No pleural effusion. No pneumothorax. Heart/Mediastinum: Unremarkable. No cardiomegaly. Bones/joints: Unremarkable. XR/XR chest 2V* [id number] IMPRESSION: No acute findings.
--- NOTE | 2024-09-24 08:52 | W.ED.SOB ---
HPI - SOB/Dyspnea General: Chief Complaint: Shortness of Breath/Dyspnea Stated Complaint: spells of trouble catching breath Time Seen by Provider: 09/24/24 08:43 History of Present Illness: HPI Narrative: This patient is a 78 year old presenting with asthma. She reports a history of asthma and says that it has been particularly bad this summer and especially for the past month. She has inhalers for atrovent and advair, but doesn't use them due to concern about side effects. She has had albuterol in the past, but not currently. She does not do anything else for her asthma. She is not a smoker. She denies history of COPD, CHF, CAD. She is diabetic. She does have medications that would imply a history of heart issues such as isosorbide mononitrate and furosemide. She denies fever, nausea, chest pain. She sleeps propped up at baseline due to her asthma, and has been coughing up pale yellow, thick phlegm. Related Data Home Medications ?Medication ?Instructions ?Recorded ?Confirmed cyanocobalamin (vitamin B-12) 1,000 mcg IM Q30D 07/02/22 09/24/24 1,000 mcg/mL injection solution dapagliflozin propaned 5 1 tab PO DAILY 07/02/22 09/24/24 mg-metformin ER 1,000 mg tablet, ext rel 24hr (Xigduo XR) furosemide 40 mg tablet 40 mg PO DAILY PRN Edema 07/02/22 09/24/24 glipizide 10 mg tablet, extended 20 mg PO QAM 07/02/22 09/24/24 release 24 hr metronidazole 0.75 % topical gel 1 applic topical BID 07/02/22 09/24/24 cholecalciferol (vitamin D3) 125 125 mcg PO DAILY 09/24/24 09/24/24 mcg (5,000 unit) tablet (Vitamin D3) Previous Rx's ?Medication ?Instructions ?Recorded albuterol sulfate 90 mcg/actuation 2 inh inhalation QID PRN shortness 09/24/24 aerosol inhaler (Ventolin HFA) of breath or wheezing #6.7 grams prednisone 20 mg tablet 20 mg PO BID 5 days #10 tabs 09/24/24 Allergies Allergy/AdvReac Type Severity Reaction Status Date / Time ciprofloxacin Allergy ALGY-Rash Verified 07/02/22 05:02 erythromycin base Allergy ALGY-Rash Verified 07/02/22 05:02 Penicillins Allergy ALGY-Rash Verified 07/02/22 05:02 Sulfa (Sulfonamide Allergy ALGY-Rash Verified 07/02/22 05:02 Antibiotics) PFSH ED PFSH: Medical History (Updated 09/24/24 @ 10:59 by Bertha Trevizo MD) No pertinent past medical history Social History Substance/Drug Use: never Physical Exam Const: COMMON NORMALS: no acute distress, patient oriented x3, no limitations and alert GENERAL APPEARANCE: cooperative and comfortable HENMT: HEAD & SCALP: normal to inspection FACE & SINUS: normal facial exam Eye: GENERAL EYE: appearance normal, both eyes and all related structures Neck/C-Spine: COMMON NORMALS: supple, no meningeal signs and no JVD Chest: COMMONS NORMALS: normal inspection of the chest Resp: OTHER: mildly increased work of breathing. Wheezing throughout all lung walter. Cardio: COMMON NORMALS: no JVD, regular rate, regular rhythm and No murmurs present (Cardio) RATE: regular rate RHYTHM: regular rhythm GI: COMMON NORMALS: Normal to inspection, nondistended, normoactive bowel sounds present, Soft to palpation and non-tender INSPECTION: Yes normal to inspection AUSCULTATION: Yes normoactive bowel sounds PALPATION: Yes Soft to palpation Back/Pelvis: COMMON NORMALS: thoracic and lumbar spine normal to inspection Extremity: COMMON NORMALS: normal to inspection NARRATIVE EXTREMITY EXAM: no peripheral edema Neuro: COMMON NORMALS: patient oriented x3, moves all extremities, no focal motor deficits and no sensory deficits noted SENSORIUM/ORIENTATION: Yes alert MENINGEAL SIGNS: Yes no meningeal signs Psych: COMMON NORMALS: mental status grossly normal, cooperative and normal affect Skin: COMMON NORMALS: no rashes or lesions noted and turgor normal GENERAL SKIN EXAM: no rashes or lesions noted and turgor normal Course Vital Signs: Vital signs: Vital Signs Temperature 98.0 F 09/24/24 08:45 Pulse Rate 83 09/24/24 11:26 Respiratory Rate 18 09/24/24 10:40 Blood Pressure 167/78 09/24/24 11:26 Pulse Oximetry 94 09/24/24 11:26 Oxygen Delivery Me thod Room Air 09/24/24 10:40 MDM - SOB/Dyspnea Medical Decision Making History of asthma. She is not compliant with treatments. She has been getting worse over the past month. She is wheezing today. After 1 DuoNeb her wheezing was improved but still present. After second DuoNeb she was clear and comfortable. She will be started on some prednisone as well. She is diabetic and we discussed that her blood sugar might go up with this. I did encourage her to use her Advair on a regular basis. I gave her an albuterol inhaler to use as needed. We discussed how each of these medications should be used including the prednisone. She was also encouraged to follow-up with her PCP for reevaluation this week to make sure she is improving. Lab Data 09/24/24 09:05 09/24/24 09:05 Labs/Radiology: Radiology Impressions Chest X-Ray 09/24/24 08:50 IMPRESSION: No acute findings. Laboratory Results WBC 7.17 10^3/uL (3.29-11.43) 09/24/24 09:05 RBC 5.22 10^6/uL (3.85-5.65) 09/24/24 09:05 Hgb 15.90 g/dL (11.27-16.99) 09/24/24 09:05 Hct 47.1 % (36-47) H 09/24/24 09:05 MCV 90.2 fl (85-98) 09/24/24 09:05 MCH 30.5 pg (27-33) 09/24/24 09:05 MCHC 33.8 g/dL (30-55) 09/24/24 09:05 RDW 12.8 % (12.1-15.1) 09/24/24 09:05 Plt Count 187 10^3/cmm (157-399) 09/24/24 09:05 MPV 9.4 fL (7.4-10.4) 09/24/24 09:05 Neut % (Auto) 61.7 % 09/24/24 09:05 Lymph % (Auto) 23.8 % 09/24/24 09:05 [place] % (Auto) 7.7 % 09/24/24 09:05 Eos % (Auto) 5.9 % 09/24/24 09:05 Baso % (Auto) 0.6 % 09/24/24 09:05 Neut # (Auto) 4.43 10^3/uL (1.8-7.7) 09/24/24 09:05 Lymph # (Auto) 1.7 10^3/uL (0.8-4.8) 09/24/24 09:05 [place] # (Auto) 0.6 10^3/uL (0.2-0.9) 09/24/24 09:05 Eos # (Auto) 0.4 10^3/uL (0.0-0.8) 09/24/24 09:05 Baso # (Auto) 0.0 10^3/uL (0.0-0.1) 09/24/24 09:05 Nucleated RBC % (auto) 0 % 09/24/24 09:05 Nucleated RBCs # 0.0 /100WBC 09/24/24 09:05 Sodium 139 mmol/L (136-145) 09/24/24 09:05 Potassium 4.1 mmol/L (3.5-5.1) 09/24/24 09:05 Chloride 100 mmol/L (98-107) 09/24/24 09:05 Carbon Dioxide 28 mmol/L (22-29) 09/24/24 09:05 Anion Gap 15.1 (5-19) 09/24/24 09:05 BUN 11 mg/dL (8-23) 09/24/24 09:05 Creatinine 0.6 mg/dL (0.5-0.9) 09/24/24 09:05 GFR Calculation Not Reportable 09/24/24 09:05 Glucose 142 mg/dL (65-115) H 09/24/24 09:05 Calculated Osmolality 290 mOsm/kg (285-295) 09/24/24 09:05 Calcium 9.5 mg/dL (8.5-10.5) 09/24/24 09:05 Total Bilirubin 0.6 mg/dL (0.15-1.2) 09/24/24 09:05 AST 22 U/L (0-32) 09/24/24 09:05 ALT 23 U/L (0-33) 09/24/24 09:05 Alkaline Phosphatase 89 U/L (35-105) 09/24/24 09:05 Troponin T Baseline 16 ng/L (0-10) H 09/24/24 09:05 NT-Pro-B Natriuret Pep 91 pg/mL (0-450) 09/24/24 09:05 Total Protein 7.1 g/dL (6.6-8.7) 09/24/24 09:05 Albumin 4.3 g/dL (3.5-5.2) 09/24/24 09:05 Globulin 2.8 g/dL (1.3-4.6) 09/24/24 09:05 All radiology interpretation(s) finalized by discharge Discharge Plan Discharge Patient Disposition: Home Clinical Impression: Asthma with exacerbation Condition: Stable Prescriptions: New prednisone 20 mg tablet 20 mg PO BID 5 Days Qty: 10 0RF albuterol sulfate [Ventolin HFA] 90 mcg/actuation HFA aerosol inhaler 2 inh inhalation QID PRN (Reason: shortness of breath or wheezing) Qty: 6.7 0RF No Action cholecalciferol (vitamin D3) [Vitamin D3] 125 mcg (5,000 unit) Tablet 125 mcg PO DAILY furosemide 40 mg tablet 40 mg PO DAILY PRN (Reason: Edema) glipizide 10 mg tablet extended release 24hr 20 mg PO QAM cyanocobalamin (vitamin B-12) 1,000 mcg/mL solution 1,000 mcg IM Q30D metronidazole 0.75 % gel 1 applic TOPICAL BID dapaglifloz propaned-metformin [Xigduo XR] 5-1,000 mg tablet, IR - ER, biphasic 24hr 1 tab PO DAILY Discharge Orders: Discharge ED (Routine); Ordered 09/24/24 Ordered By: Bertha Trevizo Referrals: Shirley Chen APRN [Primary Care Provider, Family Practice] Patient Instructions: Opioid Safety, Pain Management, Patient Portal & [place] Instructions Activity Restrictions/Additional Instructions: Follow up with your doctor this week for a recheck. Use the Advair daily as it will help to prevent wheezing. The Atrovent and Albuterol as used as needed to treat wheezing once it begins. Print Language: Citizen Of [place] Coding Level of Care Code ED Divisional Merchandising Manager for Bonifacio Hilario
--- NOTE | 2024-09-24 08:54 | ECG_ITS ---
[facility] Test Date: 2024-09-24 Pat Name: Oz Quintero Department: Room: Gender: Female Telesales Professional: : 1945 Requested By: Bertha Calvillo Order Number: [id number] Annette MD: David Yu M.D. Measurements Intervals [place] Rate: 90 P: 77 UT: 173 QRS: 90 QRSD: 134 T: 28 QT: 390 QTc: 479 Interpretive Statements SINUS RHYTHM INDETERMINATE AXIS RIGHT BUNDLE BRANCH BLOCK [120+ ms QRS DURATION, UPRIGHT V1, 40+ ms S IN I/aVL/V4/V5/V6] Nonspecific ST changes SEPTAL MYOCARDIAL INFARCTION , OF INDETERMINATE AGE [40+ ms Q WAVE IN V1/V2] Compared to ECG 07/02/2022 06:40:51 No significant changes Electronically Signed On 09-24-2024 18:34:29 CDT by David Yu M.D. [id number]
[2024-09-24 09:15] LABS: Hematocrit 47.1 % (36-47); Hemoglobin 15.90 g/dL (11.27-16.99); Mean Corpuscular HGB Conc 33.8 g/dL (30-55); Mean Corpuscular Hemoglobin 30.5 pg (27-33); Mean Corpuscular Volume 90.2 fl (85-98); Nucleated Red Blood Cells % 0 %; Platelet Count 187 10^3/cmm (157-399); Red Blood Count 5.22 10^6/uL (3.85-5.65); White Blood Count 7.17 10^3/uL (3.29-11.43)
[2024-09-24 09:38] LABS: Troponin(5th) Baseline 16 ng/L (0-10)
[2024-09-24 09:47] LABS: Alanine Aminotransferase 23 U/L (0-33); Albumin Level 4.3 g/dL (3.5-5.2); Alkaline Phosphatase 89 U/L (35-105); Anion Gap 15.1 (5-19); Aspartate Amino Transferase 22 U/L (0-32); Blood Urea Nitrogen 11 mg/dL (8-23); Calcium 9.5 mg/dL (8.5-10.5); Carbon Dioxide 28 mmol/L (22-29); Chloride 100 mmol/L (98-107); Creatinine Clr Calc Pharmacy 61.8350; Globulin 2.8 g/dL (1.3-4.6); Glucose 142 mg/dL (65-115); NT Pro B Type Natriuretic Pept 91 pg/mL (0-450); Osmolality Calculated 290 mOsm/kg (285-295); Potassium 4.1 mmol/L (3.5-5.1); Sodium 139 mmol/L (136-145); Total Protein 7.1 g/dL (6.6-8.7)
== END 2024-09-24 11:27 | disposition home or self-care (01) ==
PROVIDERS: Emergency Provider Emergency Medicine; PCP Nurse Practitioner Family
DX: J45.901 Unspecified asthma with (acute) exacerbation (principal)
CPT/HCPCS: 36415; 71046; 80053; 83880; 84484; 85025; 93005; 94640; 99285; J9999

== ENCOUNTER 2024-10-02 12:11 | Inpatient (IN) | payer MEDICARE, BC, SELFPAY ==
--- OUTSIDE RECORDS SUMMARY | 2024-09-25 08:30 | XMS_ITS ---
Author Organization [facility] Address [address] [place] [address] Care Team Providers Care Code Enforcement Supervisor Name Role Phone Ignacio Moise Primary Care Provider Tamiko Dwyer [phone] REASON FOR VISIT B-12 Inj Encounters Encounter Location Date Provider Diagnosis [facility] Office [address] [place] [address] 09/25/2024 Tamiko Dwyer Vitamin B 12 deficiency E53.8 Assessments Encounter Date Diagnosis (ICD Code) Assessment Notes Treatment Notes Treatment Clinical Notes Section Notes 09/25/2024 Vitamin B 12 deficiency (ICD-10 - E53.8) Plan Of Treatment Next Appt Details Provider Name:Ignacio Moise, 11/02/2024 10:20:00 AM, [address], [place], [address], Medications Administered Medication Instructions Date of Administration Dosage Notes IM - Patient Supplied Med 09/25/2024 vitamin b12 1000 mcg given IM in left arm, Patient tolerated well. Progress Notes * Oz BELL KDOB:[birth year] (78 yo F)Acc No.[id number]:09/25/2024 Progress Note Patient: Mckenzie Murphyreynold Annalisa Provider: Rajinder Dwyer APRN :1945 A ge:78 Y S ex:Female Date:09/25/2024 Address:[id number] Pcp:Albertina Chen APRN Check In:01:27 PM CSTCheck O ut:01:31 PM CARE TAKER Subjective: * Chief Complaints: * B -12 Inj Assessment: * Assessment: 1. V itamin B 12 deficiency - E53.8 (Primary) Plan: * Therapeutic Injections: IM - Patient Supplied Med (Route: Intramuscular) given by Jen German on left deltoid * Procedure Codes: 9 6372 IM - Patient Supplied Med Billing Information: * Procedure Codes: 36638 IM - Patient Supplied Med. * Sign off status: Completed true * Provider: Rajinder Dwyer APRN Date: 09/25/2024 Generated for Ben severino/Sg/Sophiaitting on: 10/02/2024 12:13 PM CDT
--- OUTSIDE RECORDS SUMMARY | 2024-09-28 05:20 | XMS_ITS ---
Author Organization [facility] Address [address] [place] [address] Care Team Providers Care Car Dropper Name Role Phone MoiseIgnacio feldman Primary Care Provider Allergies Allergen (clinical drug ingredient) Drug/Non Drug Allergy documented on EMR Reaction Allergy Type Onset Date Status aspirin Aspirin , Urticaria (disorder) , Drug Allergy Active cefazolin Cefazolin , Drug Allergy Active ciprofloxacin Ciprofloxacin , , Drug Allergy Active erythromycin Erythromycin , , Drug Allergy A ctive Penicillin Unknown Drug Allergy Active Strawberries Unknown Allergy Active Substance with sulfonamide structure and antibacterial mechanism of action (substance) Sulfa Antibiotics Unknown Drug Allergy Active REASON FOR VISIT EST CARE, Pt is in need of completion of a Functional Status Assessment, document under Preventative Medicine> screenings> care for older adults (FSA), Pt is in need of completion of a Depression Screening. Document under Social History. Medications Medication SIG (Take, Route, Frequency, Duration) Notes Start Date End Date Status EpiPen 2-Marcello 0.3 MG/0.3ML Solution Auto-injector as directed Injection as directed prn severe allergy reaction; Duration: 1 days 09/16/2023 Active Cyanocobalamin 1000 MCG/ML Solution INJECT 1ML INTRAMUSCULARLY MONTHLY Injection; Duration: 90 Active Xigduo XR 5-1000 MG Tablet Extended Release 24 Hour TAKE ONE TABLET BY MOUTH ONCE a DAY Oral; Duration: 30 Active Reglan 10 MG Tablet 1 tablet as directed Orally once; Duration: 1 day 10/25/2023 Not-Taking glipiZIDE ER 10 MG Tablet Extended Release 24 Hour TAKE ONE TABLET BY MOUTH TWICE DAILY AT breakfast AND LUNCH Oral; Duration: 90 Active predniSONE 20 MG Tablet 2 tabs for 5 day s; 1 tab for 5 days; 1/2 tab for 5 days Orally Once a day Active Albuterol Sulfate HFA 108 (90 Base) MCG/ACT Aerosol Solution 1 puff as needed Inhalation every 4 hrs Active Social History Tobacco Use: Social History Observation Description Date Details (start date - stop date) Never Smoker NA - NA Social History Depression Screening Social Info Question Answer Notes depression screening findings Findings Negative (0 -4) 09/28/24 PHQ-9 Little interest or p alanna in doing things Not at all Feeling down, depressed, or hopeless Not at all Trouble falling or staying asleep, or sleeping t oo much Several days Feeling tired or having little energy Not at all Poor appetite or overeating Not at all Feeling bad about yourself, or that you are a failure, or have let yourself or your family down Not at all Trouble concentrating on thi ngs, such as reading the newspaper or watching television Not at all Moving or speaking so slowly that other people could have noticed. Or the opposite ? being so fidgety or restless that you have been moving around a lot more than usual Not at all Thoughts that you would be b rio off , or of hurting yourself in some way Not at all Total Score 1 Interpretation Minimal Depression Comprehensive Health Assessm ent Social Info Question Answer Notes *Social Determinants of Health Has lack of transportation kept you from medical appointments, meetings, work or from getting things needed for daily living? No Recently, have you worried t hat your food would run out before you got money to buy more? No Do you feel physically and emotionally safe wher e you currently live? Yes Are you worried about losing your housing? No Have you recently been pattie rned that your utilities would be turned off (electricity, gas, or water)? No Tobacco Use: Social Info Question Answer Notes Tobacco Control (Standard) Tobacco use: Nonsmoker Section Notes: CIME Dep/tob - 09/28/24 Problems Problem Type SNOMED Code ICD Code Onset Dates Problem Status W/U Status Risk Notes Problem Type II diabetes mellitus without complication (540152158) Type 2 diabetes mellitus without complications (E11.9) Active confirmed Problem Asthma without status asthmaticus (07873396) Active asthma (J45.909) Active confirmed Vital Signs Temperature 97.3 degrees Fahrenheit 09/29/19 25 Blood pressure systolic 140 mm Hg 09/29/19 25 Blood pressure diastolic 70 mm Hg 025 Heart Rate 94 /min 09/28/2024 Height 64.5 in 09/28/2024 Weight 185 lbs 09/28/2024 BMI 31.26 kg/m2 09/28/2024 Oximetry 97 % 09/28/2024 Height-cm 163.83 cm 09/28/2024 Weight-kg 83.92 kg 09/28/2024 Encounters Encounter Location Date Provider Diagnosis [facility] [address] [place] [phone] 09/28/2024 Tomastalia Suma Depression screen Z13.31 ; Vitamin B 12 deficiency E53.8 ; Type 2 diabetes mellitus without complications E11.9 and Active asthma J45.909 Assessments Encounter Date Diagnosis (ICD Code) Assessment Notes Treatment Notes Treatment Clinical Notes Section Notes 09/28/2024 Depression screen (ICD-10 - Z13.31) 09/28/2024 Vitamin B 12 deficiency (ICD-10 - E53.8) 09/28/2024 Type 2 diabetes mellitus without complications (ICD-10 - E11.9) 09/28/2024 Active asthma (ICD-10 - J45.909) Plan Of Treatment Next Appt Details Follow Up: 4 Weeks, Reason: Provider Name:Miguelshawnee Anne Moise, 11/02/2024 10:20:00 AM, [address] [place] [address], [phone], History and Physical Notes * HPI (History of Present Illness) Category Sub-Category Detail Notes Category Not es Patient Complaints Asthma The asthma ruby s been present: for years The severity of the asthma: is moderate Examination Category Sub-Category Detail Notes Category Not es Examination GENERAL APPEARANCE: Awake/alert. No appar ent distress HEART: Regular rate and rhy thm without rubs, murmurs, or gallops. PMI nondisplaced ABDOMEN: Soft, nontender, non distended with active bowel sounds X4. No HSM or masses BACK: Normal alignment wit h normal active ROM. 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 Document under Social History. * HPI: P atient Complaints: Patient here to [facility] - Wednesday went to [facility] ER with a flare up from her Asthma - started on Prednisone and Albuterol - doing some better - face is flush from Prednisone. Asthma T he asthma has been present f or years T he severity of the asthma i s moderate * ROS: G eneral/Constitutional: Patient denies f atigue , fever , night sweats. ? H ematology: Patient denies e asy bruising , bleeding problems , recent transfusion. R espiratory: Patient denies c ough , shortness of breath , wheezing.?Asthma a dmits. C ardiovascular: Patient denies c hest pain , irregular heartbeat , swelling in hands/feet. G astrointestinal: Patient denies a bdominal pain, bloating , constipation , diarrhea , heartburn , blood in stool , nausea , vomiting. G enitourinary: Patient denies p ainful urination , blood in the urine , difficulty urinating. E NT: Patient denies e ar pain , nosebleed, runny nose, s ore throat. M usculoskeletal: Patient denies a rthritis\arthralgia , back pain , joint stiffness , muscle aches. S kin: Patient denies s kin lesion(s) , rash , acne. ? N eurologic: Patient denies d izziness , fainting , headache , memory loss , seizures. P sychiatric: Patient denies a nxiety , depressed mood , difficulty sleeping , suicidal thoughts. e st care. * Medical History: Arthritis Cobalamin deficiency Diabetes Disorder of the peripheral nervous system Hearing loss Asthma Seasonal allergic rhinitis Rosacea Medical History Verified * Surgical History: Thyroid Nodule Excision Hysterectomy 1985 Cholecystectomy 2017 CEIOLI both eyes Surgical History verified. * Hospitalization/Major Diagno stic Procedure: see surgery list child Hospitalization Verified. * Family History: F ather: 78 yrs, cancer- all over unsure of type. M other: 92 yrs, natural causes. S iblings: twin sister colon cancer age 70older sister colon cancer age 88. F amily History Verified.. * Social History: T obacco Use: T obacco Control (Standard) T obacco use: N onsmoker D epression Screening: P HQ-9 L ittle interest or pleasure in doing things?Not at all F eeling down, depressed, or hopeless N ot at all T rouble falling or staying asleep, or sleeping too much S everal days F eeling tired or having little energy N ot at all P oor appetite or overeating N ot at all F eeling bad about yourself, or that you are a failure, or have let yourself or your family down N ot at all T rouble concentrating on things, such as reading the newspaper or watching television N ot at all M oving or speaking so slowly that other people could have noticed. Or the opposite ? being so fidgety or restless that you have been moving around a lot more than usual N ot at all T houghts that you would be better off , or of hurting yourself in some way N ot at all T otal Score 1 I nterpretation M inimal Depression Depression screening findings F indings N egative (0-4) 09/28/24 C omprehensive Health Assessment: * Social Determinants of Health H as lack of transportation kept you from medical appointments, meetings, work or from getting things needed for daily living? N o R ecently, have you worried that your food would run out before you got money to buy more? N o D o you feel physically and emotionally safe where you currently live? Y es A re you worried about losing your housing??No H ave you recently been concerned that your utilities would be turned off (electricity, gas, or water)? N o S ocial History Verified. C VI Dep/tob - 09/28/24. * Medications: T akingpredniSONE 20 MG Tablet 2 tabs for 5 days; 1 tab for 5 days; 1/2 tab for 5 days Orally Once a day Albuterol Sulfate HFA 108 (90 Base) MCG/ACT Aerosol Solution 1 puff as needed Inhalation every 4 hrs EpiPen 2-Marcello 0.3 MG/0.3ML Solution Auto- injector as directed Injection as directed prn severe allergy reaction Cyanocobalamin 1000 MCG/ML Solution INJECT 1ML INTRAMUSCULARLY MONTHLY Injection Xigduo XR 5-1000 MG Tablet Extended Release 24 Hour TAKE ONE TABLET BY MOUTH ONCE a DAY Oral glipiZIDE ER 10 MG Tablet Extended Release 24 Hour TAKE ONE TABLET BY MOUTH TWICE DAILY AT breakfast AND LUNCH Oral Taking predniSONE 20 MG Tablet 2 tabs for 5 days; 1 tab for 5 days; 1/2 tab for 5 days Orally Once a day Taking Albuterol Sulfate HFA 108 (90 Base) MCG/ACT Aerosol Solution 1 puff as needed Inhalation every 4 hrs Taking EpiPen 2-Marcello 0.3 MG/0.3ML Solution Auto-injector as directed Injection as directed prn severe allergy reaction Taking Cyanocobalamin 1000 MCG/ML Solution INJECT 1ML INTRAMUSCULARLY MONTHLY Injection Taking Xigduo XR 5-1000 MG Tablet Extended Release 24 Hour TAKE ONE TABLET BY MOUTH ONCE a DAY Oral Taking glipiZIDE ER 10 MG Tablet Extended Release 24 Hour TAKE ONE TABLET BY MOUTH TWICE DAILY AT breakfast AND LUNCH Oral Not-TakingReglan 10 MG Tablet 1 tablet as directed Orally once Medication List reviewed and reconciled with the patientNot-Taking Reglan 10 MG Tablet 1 tablet as directed Orally once Medication List reviewed and reconciled with the patient * Allergies: A spirin: , Urticaria (disorder) , - AllergyCefazolin: , - AllergyCiprofloxacin: , , - AllergyErythromycin: , , - AllergyPenicillinSulfa AntibioticsStrawberries Objective: * Vitals: H t: 64.5 in, Wt:185lbs, Wt-k.92 kg, BMI:31.26Index, Temp:97.3F, BP: 145/70 mm Hg,140/70mm Hg, HR:94/min, Oxygen sat %:97%, O2 Source: RA, Pain scale: 0 1-10, Ht-cm: 163.83 cm. * Examination: E xamination: GENERAL APPEARANCE: A wake/alert. No apparent distress.? HEART: R egular rate and rhythm without rubs, murmurs, or gallops. PMI nondisplaced. LUNGS: C lear to auscultation without rales, rhonchi, wheezing, tachypnea or air hunger. ABDOMEN: S oft, nontender, nondistended with active bowel sounds X4. No HSM or masses. BACK: N ormal alignment with normal active ROM. No vertebral point tenderness. Assessment: * Assessment: 1. D epression screen - Z13.31 (Primary) 2 . V itamin B 12 deficiency - E53.8 3 . T ype 2 diabetes mellitus without complications - E11.9 4 . A ctive asthma - J45.909 Plan: * Procedure Codes: 3 078F DIAST BP < 80 MM [id number] FXNL STATUS [id number] BRIEF EMOTIONAL/BEHAV ASSMT * Preventive Medicine: Screenings: C ARE FOR OLDER ADULTS Functional Status N o Impairment for Functional Status 09/28/24 Function Status Assessment date 0 09/28/2024 09/28/24 Medication review date 0 09/28/2024 Pain Assessment date 0 09/28/2024 D EPRESSION SCREENING: (Please see PHQ-9 in Social History. This section is not mapped to meet the metric.) * * Follow Up: 4 Weeks Billing Information: * Visit Code: 96804 Office Visit, New Pt., Level 4. * Procedure Codes: 3078F DIAST BP < 80 MM HG. 1170F FXNL STATUS ASSESSED. 79183 BRIEF EMOTIONAL/BEHAV ASSMT. * Electronic signature of Michel Moise MD on 10/02/2024 at 12:13 PM CDT Sign off status: Pending * Provider: David Moise MD Date: 0 09/28/2024 Generated for Ben severino/Sg/Cherylsmitting on: 0 10/02/2024 12:13 PM CDT
[2024-10-02] VITALS (7 sets, daily range): BP systolic 83–163; BP diastolic 54–71; PULSE 53–69; RESP 16–37; TEMP 36.6; O2SAT 90–98; BMI 32.9
--- NOTE | 2024-10-02 12:10 | ECG_ITS ---
[facility] Test Date: 2024-10-02 Pat Name: Oz Quintero Department: Room: Gender: Female Cutting Supervisor: : 1945 Requested By: Vlad Calvillo Order Number: [id number] Annette MD: Mark Madrid M.D. Measurements Intervals [place] Rate: 63 P: 63 [place]: 175 QRS: 74 QRSD: 134 T: 104 QT: 454 QTc: 467 Interpretive Statements SINUS RHYTHM WITH MARKED SINUS ARRHYTHMIA INTRAVENTRICULAR CONDUCTION DELAY [130+ ms QRS DURATION] MARKED ST ELEVATION, CONSIDER INFERIOR INJURY [MARKED ST ELEVATION W/O NORMALLY INFLECTED T-WAVE IN II/aVF] ACUTE IN Compared to ECG 09/24/2024 08:46:34 ST ELEVATION IS NEW Electronically Signed On 10-04-2024 14:08:31 CDT by Mark Madrid M.D. [email or web address]
--- NOTE | 2024-10-02 12:13 | XACV_ITS ---
Exam Room: [facility] Ht: 165 cm Wt: 84 kg BSA: 1.99 m2 Gender: Female : 1945 Any Known Allergies: Other Exam Priority: Routine Indication(s): - Inferior wall IA Procedure(s): Procedure Description: Diagnostic procedure Procedure Description: PCI procedure Procedure Description: Drug Eluting Coronary Stent Procedure Description: PTCA Procedure Description: Miscellaneous Procedure Description: ACT Procedure Description: Coronary Angiography Diagnostic Cath Status: Emergency Diagnostic Findings * Left Main has no significant disease. * Circumflex has mild to moderate diffuse disease. Very distal artery is small caliber and subtotally occluded. * Mid Right Coronary Artery: total thrombotic occlusion, RJ: 0 flow. * Mid Left Anterior Descending: moderate 50% stenosis, RJ: 3 flow. * Distal Right Coronary Artery: significant 80% stenosis, RJ: 3 flow. * Coronary angiography shows right dominance. PCI Status: Emergency PCI Indication: Immediate PCI for STEMI Interventional Findings * Procedure detail: We engaged RCA with JR4 guide catheter. IV heparin was administered to maintain anticoagulation. Run-through wire was used to cross the stenosis and was placed in distal vessel. We predilated the totally occluded mid RCA with 2.5 x 12 mm semicompliant balloon. Distal vessel also had significant stenosis. This was predilated with 2.0 x 15 mm semicompliant balloon. Followed by predilation with 2.5 x 12 mm semicompliant balloon. We then placed at 2.5 x 30 mm resolute Wallace drug-eluting stent and distal RCA. A 3.0 x 34 mm resolute Wallace drug-eluting stent was used to treat proximal to mid RCA. Proximal stent was postdilated with 3.0 x 15 mm NC balloon at high pressure. Distal vessel stent was postdilated with 2.75 x 6 mm NC balloon. At this time final angiogram was performed that showed excellent stent expansion, no residual stenosis and RJ-3 flow. Guidewire and guide catheter were removed. Patient left the Field Care Advocate in a stable condition.. * Mid Right Coronary Artery: 100% stenosis treated with a AB TREK 2.50X12 RX BALLOON, MDT R TRIPP 3.0X34 FLOR, and MDT NC EUPHORA RX [id number] BALLOON. 0% residual stenosis, RJ: 3 flow. * Distal Right Coronary Artery: 80% stenosis treated with a AB MINI TREK 2.00X15 RX BALLOON, AB TREK 2.50X12 RX BALLOON, MDT R TRIPP 2.5X30 FLOR, and MDT NC EUPHORA RX 2.55Y48HO BALLOON. 0% residual stenosis, RJ: 3 flow. Conclusions 1. Total thrombotic occlusion of mid RCA status post PCI with 1 stent. Distal RCA also has significant disease and had PCI with 1 stent.. 2. Mid Right Coronary Artery was treated with a Balloon, Drug Eluting Stent, and Balloon. 3. Distal Right Coronary Artery was treated with a Balloon, Balloon, Drug Eluting Stent, and Balloon. Recommendations * Patient is allergic to aspirin. We will treat with Brilinta monotherapy. Will keep Aggrastat for 4 hours for now. * And intensity statin therapy. * Outpatient cardiology follow-up in 2 weeks. Interventional RX Recommendation: PCI w/o planned CABG Diagnostic RX Recommendation: PCI w/o planned CABG Anticoagulation: Heparin Pressures Phase:Rest AO : 164 / 59 ( 95 ) @ 1:30:00 PM 119 / 75 ( 96 ) @ 1:39:00 PM 197 / 108 ( 79 ) @ 1:43:00 PM 134 / 68 ( 93 ) @ 1:48:00 PM 105 / 60 ( 81 ) @ 2:00:00 PM Clinical Evaluation EBL: 5mL-10mL Procedural Details Pre-Procedure Time Out. Identified patient by full name and date of as verbalized by the patient/guarantor. Does the consent match the physician's order: N/A Emergent; Informed Consent not obtained due to time critical life threat. Accurate & Complete Informed Consent: N/A Emergent; Informed Consent not obtained due to time critical life threat. Inpatient/Outpatient History & Physical on Chart: N/A Emergent; Informed Consent not obtained due to time critical life threat. If H&P is completed, is and addenduem needed: N/A Emergent; Informed Consent not obtained due to time critical life threat; If yes, is the addendum complete: N/A Emergent; Informed Consent not obtained due to time critical life threat. Visualize and Verify Site with Patient/Guarantor: N/A. Relevant Radiology Images available: N/A Emergent; Informed Consent not obtained due to time critical life threat. Pre-op teaching completed and patient verbalized understanding. The risks, benefits, and alternatives of sedation and/or procedure were discussed by physician. The patient agrees to continue. Procedure started. Field Care Advocate Indications: ACS <= 24 hours. Chest Pain Symptom Assessment: Typical Angina Symptoms. Cardiovascular Instability: Yes, if yes, Persistant Ischemic Symptoms. Correct patient, site and procedure confirmed by cath team. Current diagnosis: STEMI. PERRLA. Strong, equal hand facilities flight check pilot bilaterally. Lungs clear x 5 lobes. IV Site on Arrival: 18 gauge in the left anticubital. IV Fluids: 0.9% NaCl at KVO. 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 Pre Procedural Pulses: bilateral dorsalis pedis was Doppled. Pre Procedural Pulses: bilateral posterior tibial was Doppled. Pre Procedural Pulses: bilateral radial was Absent. Oxygen started at 2liters/min via nasal canula. bilateral groins was prepped with chloroprep then draped in the usual sterile fashion. Physician notified. Baseline sample Acquired. HR: 55 BPM. Patient's family unavailable. Equipment: 6F - Femoral. Cardiac Cath Pack. Heparinized Saline (2 units/mL), 1000 mL bag. Kit, Micropuncture. Physician arrived. Physician scrubbed in. Immediate Pre-Procedure Time Out. Correct Patient: N/A Emergent; Informed Consent not obtained due to time critical life threat; Correct Procedure: N/A Emergent; Informed Consent not obtained due to time critical life threat; Correct Site: N/A Emergent; Informed Consent not obtained due to time critical life threat; Correct Patient Position: N/A Emergent; Informed Consent not obtained due to time critical life threat; Correct Supplies: N/A Emergent; Informed Consent not obtained due to time critical life threat; Dried Flammable Prep: N/A Emergent; Informed Consent not obtained due to time critical life threat; Blood Products Available: N/A Emergent; Informed Consent not obtained due to time critical life threat;. Lidocaine 1% infiltrated to the right groin. Arterial access obtained with micropuncture set. 6 irish JR 4 guide catheter was inserted over the standard J wire. Runthrough guidewire was advanced through the guide catheter to lesion in the mid RCA. AP pads placed on the patient. Inflation number : 1 A AB TREK 2.50X12 RX BALLOON was prepped and advanced across the Mid RCA , then inflated to 8 PATRICIA for 0:05 seconds. Inflation number: 2 The AB TREK 2.50X12 RX BALLOON was reinflated across the Mid RCA, to 10 PATRICIA for 0:07 seconds. Inflation number: 3 The AB TREK 2.50X12 RX BALLOON was reinflated across the Mid RCA, to 10 PATRICIA for 0:11 seconds. Balloon out. Results checked. Inflation number : 1 A AB MINI TREK 2.00X15 RX BALLOON was prepped and advanced across the Dist RCA , then inflated to 10 PATRICIA for 0:10 seconds. Balloon out. Inflation number: 2 The AB TREK 2.50X12 RX BALLOON was reinflated across the Dist RCA, to 8 PATRICIA for 0:08 seconds. Inflation number: 3 The AB TREK 2.50X12 RX BALLOON was reinflated across the Dist RCA, to 8 PATRICIA for 0:06 seconds. Inflation number: 4 The AB TREK 2.50X12 RX BALLOON was reinflated across the Dist RCA, to 8 PATRICIA for 0:07 seconds. Inflation number: 5 The AB TREK 2.50X12 RX BALLOON was reinflated across the Dist RCA, to 10 PATRICIA for 0:09 seconds. PCI Indication : Immediate PCI for STEMI. Balloon out. Inflation Number : 6 A KRISTOPHER Askew TRIPP 2.5X30 FLOR -Lot Number# [id number] Exp. was prepped and advanced across the Dist RCA. The stent was deployed at 12 PATRICIA for 0:15 seconds. Stent balloon out over wire. Inflation Number : 4 A MDT R TRIPP 3.0X34 FLOR -Lot Number# [id number] Exp. was prepped and advanced across the Mid RCA. The stent was deployed at 12 PATRICIA for 0:15 seconds. Stent balloon out over wire. Family updated by Des Cano RN, [employer]. Inflation number : 5 A MDT NC EUPHORA RX [id number] BALLOON was prepped and advanced across the Mid RCA , then inflated to 18 PATRICIA for 0:09 seconds. Inflation number: 6 The MDT NC EUPHORA RX 3.90I77NM BALLOON was reinflated across the Mid RCA, to 18 PATRICIA for 0:08 seconds. Balloon out. Inflation number : 7 A MDT NC EUPHORA RX 2.11D12IK BALLOON was prepped and advanced across the Dist RCA , then inflated to 20 PATRICIA for 0:13 seconds. Inflation number: 8 The MDT NC EUPHORA RX 2.41Y07UX BALLOON was reinflated across the Dist RCA, to 18 PATRICIA for 0:12 seconds. Balloon out. Results checked. Wire out. Guide catheter out over the standard J wire. Blood drawn and took to lab by Des Cano RN, [employer]. ACT drawn. Results 228 seconds. Therapeutic limits - pre-heparin administration 90-150 seconds and monitoring heparin during a vascular procedure >250 seconds. A 5 irish JL4 catheter in over wire. Multiple views taken of left coronary artery. Catheter removed over the standard J wire. ACT drawn. Results 272 seconds. Therapeutic limits - pre-heparin administration 90-150 seconds and monitoring heparin during a vascular procedure >250 seconds. A Right femoral angiogram was performed to determine safe placement of closure device. Physician scrubbed out. A Suture was successful obtaining hemostatsis at the Femoral artery insertion site. Sheath(s) sutured into position with 2-0 silk and sterile 4x4's and Op-site applied over the site. No oozing or signs and symptoms of hematoma noted. Arterial sheath flushed and connected to tranducer and pressure bag with heparinized saline. Post Procedure: Pulses reassessed and unchanged. PERRLA. Strong, equal hand facilities flight check pilot bilaterally. No VTE prophylaxis required. Medication's Wasted: Lidocaine 1% = 10 mL. Medication's Wasted: Nitro = 49.8 mg. Medication's Wasted: Heparin = 4000 units. Medication's Wasted: Other = Atropine 1 mg. Medication's Wasted: Other = Versed 1 mg. Medication's Wasted: Other = Fentanyl 50 mcg. Total IV fluids: 44 mL. Post-op diagnosis: FLOR to the distal RCA x 1. FLOR stent to mid RCA x 1. PCI Indication: STEMI. Complications: none. Estimated blood loss: 5mL-10mL. Responsiveness - Normal response to verbal stimuli; alert and oriented, PERRLA. Airway - Unaffected, no intervention required; spontaneous ventilation. Circulation: W/N/L, pulses unchanged. Nausea/Vomiting: No. Procedure completed. Patient transferred by bed to ICU. Access Site Site: Femoral artery Sheath Size: 6 Fr Hemostasis Method: Suture Hemostasis Success: Successful Procedure Medications Start: 12:27 PM Stop: 12:27 PM Medication: Versed Amount: 1 mg Route: I.V. Start: 12:27 PM Stop: 12:27 PM Medication: Fentanyl Amount: 50 mcg Route: I.V. Start: 12:33 PM Stop: 12:33 PM Medication: Zofran (ondansetron) Amount: 4 mg Route: I.V. Start: 12:35 PM Stop: 12:35 PM Medication: Heparin Amount: 4000 units Route: I.V. Start: 12:38 PM Stop: 12:38 PM Medication: Aggrastat 12.5 mg/250 mL Amount: 42 ml Route: I.V. bolus Start: 12:39 PM Stop: 12:39 PM Medication: Aggrastat 12.5 mg/250 mL Amount: 15.1 ml/hr Route: I.V. bolus Start: 1:00 PM Stop: 1:00 PM Medication: Heparin Amount: 1000 units Route: I.V. Start: 12:55 PM Stop: 12:55 PM Medication: Nitrogylcerin Amount: 200 mcg Route: I.C. Start: 1:08 PM Stop: 1:08 PM Medication: Brilinta Amount: 90 mg Route: P.O. I, the attending physician, have reviewed and verified all procedure medications. Yes, all medications given per verbal order History/Risk Factors Hypertension: No Dyslipidemia: No Peripheral Arterial Disease (PAD): No Myocardial Infarction (IA): No Obesity: Yes Renal Disease: No Tobacco Use: Never Prior Interventions PCI: No CABG: No Valve Surgery: No Report Signatures Finalized by William Wall MD on 10/02/2024 01:22 PM
--- OUTSIDE RECORDS SUMMARY | 2024-10-02 12:14 | XMS_ITS | Patient Health Record ---
Author Organization [facility] Address [address] [place] [address] Care Team Providers Care Fiberglass Boat Builder Name Role Phone MoiseIgnacio Primary Care Provider Allyn Crandall Unavailable [phone] Marly Romeo Unavailable [phone] Tamiko Dwyer Unavailable [phone] Allergies Allergen (clinical drug ingredient) Drug/Non Drug [...] Component Value Reference Range Flag Notes Glucometer WBG--14135 Reviewed date:11/09/2023 03:36:04 PM Interpretation: Performing Lab: Notes/Report: Glucometer WBG 123 65-110 MG/DL HI See Docu mentation~Meter: [id number]~Food And Nutrition Teacher: [id number] TEJ RUDD Reason For Referral Reason COPD Diagnosis 1 Chronic obstructive pulmonary disease, unspecified COPD type (J44.9) Referring Provider First Name Chantelle Referring Provider Last Name Rolando Gonzalez [facility] Referring Provider Speciality Urgent Car e Referred Organization [facility] Referred Provider Tamiko Dwyer Referred Address [address],[address], Referred Provider Specialty Nurse Pracbritney ribeiro Referral Priority Routine Medications Medication SIG (Take, Route, Frequency, Duration) Notes Start Date End Date Status Reglan 10 MG Tablet 1 tablet as directed Orally once; Duration: 1 day 10/25/2023 Not-Taking Xigduo XR 5-1000 MG Tablet Extended Release 24 Hour TAKE ONE TABLET BY MOUTH ONCE a DAY Oral; Duration: 30 Active glipiZIDE ER 10 MG Tablet Extended Release 24 Hour TAKE ONE TABLET BY MOUTH TWICE DAILY AT breakfast AND LUNCH Oral; Duration: 90 Active EpiPen 2-Marcello 0.3 MG/0.3ML Solution Auto-injector as directed Injection as directed prn severe allergy reaction; Duration: 1 days 09/16/2023 Active Cyanocobalamin 1000 MCG/ML Solution INJECT 1ML INTRAMUSCULARLY MONTHLY Injection; Duration: Active Albuterol Sulfate HFA 108 (90 Base) MCG/ACT Aerosol Solution 1 puff as needed Inhalation every 4 hrs Active predniSONE 20 MG Tablet 2 tabs for 5 day s; 1 tab for 5 days; 1/2 tab for 5 days Orally Once a day Active Immunizations Vaccine Route Administration Date Status Comme nts Influenza (whole), CPT 88502 Inactive Unknown 12/19/2016 Administered Influenza (whole), CPT 97823 Inactive Unknown 01/01/2017 Administered Influenza (whole), CPT 58261 Inactive Unknown 01/04/2017 Administered Influenza (whole), CPT 82541 Inactive Unknown 12/20/2017 Administered Influenza (whole), CPT 65997 Inactive Unknown 11/15/2018 Administered Influenza, high dose [...] all Total Score 1 Interpretation Minimal Depression Drugs/Alcohol: Social Info Question Answer Notes Alcohol Screen (Audit-C) Did you have a drink containing alcohol in the past year? No Points 0 Interpretation Negative Comprehensive Health Assessm ent Social Info Question [...] Notes Tobacco Control (Standard) Tobacco use: Nonsmoker Additional Details Category Social Info Options Details zzMigrated Social History Migrated Social History Smoking Status:Never smoked tobacco (finding) Section Notes: CIME Dep/tob - 09/28/24 CIME Dep/tob - 09/28/24 Problems Problem Type SNOMED Code ICD Code Onset Dates Problem Status W/U Status Risk Notes Problem Type II diabetes mellitus without complication (329846973) Type 2 diabetes mellitus without complications (E11.9) Active confirmed Problem COPD - Chronic obstructive pulmonary disease (78400790) Chronic obstructive pulmonary disease, unspecified COPD type (J44.9) Active confirmed Problem Vitamin B12 deficiency (non anemic) (28014743) Vitamin B 12 deficiency (E53.8) Active confirmed Problem History of adenomatous polyp of colon (976526108) History of adenomatous polyp of colon (Z86.010) Active confirmed Problem Asthma without status asthmaticus (56925919) Active asthma (J45.909) Active confirmed Vital Signs Heart Rate 57 /min 10/02/2024 Temperature 96.8 degrees Fahrenheit 10/02/2024 Respiratory Rate 18 /min 10/25/2023 Blood pressure diastolic 82 mm Hg 10/02/2024 Oximetry 98 % 10/02/2024 Height-cm 163.83 cm 10/02/2024 Weight-kg 83.92 kg 10/02/2024 Height 64.5 in 10/02/2024 Blood pressure systolic 136 mm Hg 10/02/2024 Weight 185 lbs 10/02/2024 BMI 31.26 kg/m2 10/02/2024 Encounters Encounter Location Date Provider Diagnosis [facility] [address] [place] [address] 11/09/2023 Allyn Crandall [facility] [address] [facility] [address] [place] [address] 09/28/2024 Ignacio Moise Depression screen Z13.31 ; Vitamin B 12 deficiency E53.8 ; Type 2 diabetes mellitus without complications E11.9 and Active asthma J45.909 [facility] [address] [place] [address] 09/25/2024 Tamiko Batterton Vitamin B 12 deficiency E53.8 [facility] [address] [place] [address] 08/08/2024 Tamiko Batterton Vitamin B 12 deficiency E53.8 [facility] [address] [facility] [address] [place] [address] 01/31/2024 Tamiko Batterton Vitamin B 12 deficiency E53.8 [facility] [address] [facility] [address] [place] [address] 12/15/2023 Tamiko Batterton Vitamin B 12 deficiency E53.8 [facility] [address] [facility] [address] [place] [address] 11/01/2023 Tamiko Batterton Vitamin B 12 deficiency E53.8 [facility] [address] [place] [address] 10/02/2024 Ignacio Moise Blood pressure check Z01.30 [facility] [address] [place] [address] 10/25/2023 Marly Romeo Preprocedural examination Z01.818 ; Screening for colon cancer Z12.11 ; History of adenomatous polyp of colon Z86.010 and Family history of colon cancer Z80.0 [facility] [address] [place] [address] 11/15/2023 Allyn Crandall Assessments Encounter Date Diagnosis (ICD Code) Assessment Notes Treatment Notes Treatment Clinical Notes Section Notes 10/25/2023 Screening for colon cancer (ICD-10 - Z12.11) 11/01/2023 Vitamin B 12 deficiency (ICD-10 - E53.8) 12/15/2023 Vitamin B 12 deficiency (ICD-10 - E53.8) 01/31/2024 Vitamin B 12 deficiency (ICD-10 - E53.8) 08/08/2024 Vitamin B 12 deficiency (ICD-10 - E53.8) 09/25/2024 Vitamin B 12 deficiency (ICD-10 - E53.8) 10/25/2023 Preprocedural examination (ICD-10 - Z01.818) The [...] after the colonoscopy. Refer back to PCP. 09/28/2024 Vitamin B 12 deficiency (ICD-10 - E53.8) 09/28/2024 Depression screen (ICD-10 - Z13.31) 10/02/2024 Blood pressure check (ICD-10 - Z01.30) 10/25/2023 History of adenomatous polyp of colon (ICD-10 - Z86.010) 09/28/2024 Type 2 diabetes mellitus without complications (ICD-10 - E11.9) 09/28/2024 Active asthma (ICD-10 - J45.909) 10/25/2023 Family history of colon cancer (ICD-10 - Z80.0) 10/25/2023 Other Colonoscopy: Before Your Procedure material was printed, Learning About Foods That Are Good Sources of Fiber material was printed Plan Of Treatment Pending Test Test Name Order Date Colonoscopy, High Risk Screening-[id number] 0 10/25/2023 Next Appt Details Provider Name:Ignacio Moise, 11/02/2024 10:20:00 AM, [address] [facility] [address], [place], [address], Insurance Providers Payer Name Payer Address Payer Phone Subscriber Number Group Number Insured Name Patient Relationship to Insured Coverage Start Date Coverage End Date [place] Medicare [address] [place] [address] [id number] Oz Quintero Self - patient is the insured BCBS Supplement [address] [place] [address] [id number] Oz Quintero Self - patient is the insured Medications Administered Medication Instructions Date of Administration Dosage Notes B12 10/21/2021 1000 ug ND: [id number] Medication brought with patient to clinic from pharmacy. Patient tolerated well, advised to wait 20 min at clinic B12 11/20/2021 1000 ug NDC: 79443-253-41 Medication brought with patient to clinic from pharmacy. Patient tolerated well, advised to wait 20 min at clinic Cyanocobalamin 02/03/2022 1000 ug NDC: 86754-389-13 Medication brought with patient to clinic from pharmacy. Patient tolerated well, advised to wait 20 min at clinic Benadryl 09/16/2023 50 mg [facility] [address] -21 pt tolerated well/instructed to wait 20 min DEPO-Medrol 09/16/2023 40 mg [facility] [address]-169 3-01 pt tolerated well/instructed to wait 20 min dexAMETHasone 09/16/2023 4 mg [facility] 19280-7 423-00 pt tolerated well/instructed to wait 20 min IM - Patient Supplied Med 05/06/2021 vitamin b12 given to patient in right deltoid, patient tolerated well, [id number] IM - Patient Supplied Med 06/09/2021 patient supplied own vitamin B12, given in Left deltoid, patient tolerated well. [id number] IM - Patient Supplied Med 07/14/2021 patient supplied cyanocobalamin 1000mcg/ml, given in left deloid patient tolerated well, [id number] IM - Patient Supplied Med 08/12/2021 VITAMIN B12 1000MCG/ML GIVEN IN LEFT DELTIOD, PATIENT TOLERATED WELL. [id number] IM - Patient Supplied Med 09/15/2021 cyanocobalamin 1000mcg given IM in left deltoid, patient tolerated well. [id number] IM - Patient Supplied Med 12/24/2021 vitamin b12 given IM in right arm patient tolerated well. [id number] IM - Patient Supplied Med 03/12/2022 [facility] [address]-9 0 Patient tolerated well IM - Patient Supplied Med 09/14/2022 vitamin b12 1000 mcg given IM in left deltoid. Patient tolerated well. IM - Patient Supplied Med 11/17/2022 vitamin b12 1000mcg/ml given IM in left deltoid. Patient tolerated well. [id number]- IM - Patient Supplied Med 12/21/2022 1000mcg [...] IM - Patient Supplied Med 01/31/2024 vitamin [id number] cg/ml goven IM in right deltoid. Patient tolerated well. IM - Patient Supplied Med 08/08/2024 Vitamin B12 1000 mcg given IM in left deltoid, Patient tolerated well. IM - Patient Supplied Med 09/25/2024 vitamin b12 1000 mcg given IM in left arm, Patient tolerated well. Cyanocobalamin 05/07/2022 1000 ug [...] m Hearing loss Asthma Seasonal allergic rhinitis rosacea Surgical History Surgery Date(Month/Year) Thyroid Nodule Excision Hysterectomy 1984 Cholecystectomy 2017 CEIOLI both eyes Hospitalization History Reason Date(Month/Year) child see surgery list
--- OUTSIDE RECORDS SUMMARY | 2024-10-02 12:15 | XMS_ITS | Patient Health Record ---
Author Organization [facility] Address [address] [place], [place] [address] Care Team Providers Care Manager Universal Name Role Phone Kaiden Ling MD Primary Care Provider Unavailrona Day MD, Chris Unavailable [phone] Nura Yañez DO Unavailable Allergies Allergen (clinical [...] Status W/U Status Risk Notes Problem Enthesopathy (11486554) Tendonitis, tendinitis (726.90) Active confirmed Problem Knee pain (19864686) Knee pain (719.46) Active confirmed Problem Displacement of lumbar intervertebral disc without myelopathy (18736904) Lumbar (w/out myelopathy) intervertebral disc disorder (722.10) Active confirmed Problem Lumbosacral spondylosis without myelopathy (23830403) Lumbosacral spondylosis without myelopathy (721.3) Active confirmed Problem Long-term drug therapy (957917587) LONG-TERM USE MEDS NEC (V58.69) Active confirmed r/o substance abuse Plan Of Treatment No Information Insurance Providers Payer Name Payer Address Payer Phone Subscriber Number Group Number Insured Name Patient Relationship to Insured Coverage Start Date Coverage End Date [employer] Medicare Part B Claims Department [address] [address] [place] [address] [id number] Oz Quintero Self - patient is the insured [facility] [address] [place] [address] [id number] Oz Quintero Self - patient is the insured Medical (General) History Medical History History ICD Code Diabetes mellitus Leg pain, left Frequent bladder infections Asthma Surgical History Surgery Date(Month/Year) Hysterectomy Dilation and curettage Thyroid nodule removed Hospitalization History Reason Date(Month/Year)
--- NOTE | 2024-10-02 12:18 | W.ED.CHESTPA ---
HPI - Chest Pain General: Chief Complaint: Chest Pain Stated Complaint: stemi alert Time Seen by Provider: 10/02/24 12:13 History of Present Illness: 78-year-old female who arrives by EMS as a STEMI alert from her doctors office. She presented there with nausea and some vomiting and epigastric discomfort with EMS that she denied any chest pain. EKG at her doctor's office was supplied by EMS that shows a clear ST elevation in the inferior leads there EKG in our EKG when she arrived here showed same. STEMI alert had been called prior to arrival Dr. Wall was in the department when the patient arrives and seen and evaluated her. She did not receive aspirin and route because she reports an allergy to aspirin. Associated symptoms: Reports abdominal pain, nausea and vomiting; Deny dyspnea or fever(s) Related Data Home Medications ?Medication ?Instructions ?Recorded ?Confirmed cyanocobalamin (vitamin B-12) 1,000 mcg IM Q30D 07/02/22 09/24/24 1,000 mcg/mL injection solution dapagliflozin propaned 5 1 tab PO DAILY 07/02/22 09/24/24 mg-metformin ER 1,000 mg tablet, ext rel 24hr (Xigduo XR) furosemide 40 mg tablet 40 mg PO DAILY PRN Edema 07/02/22 09/24/24 glipizide 10 mg tablet, extended 20 mg PO QAM 07/02/22 09/24/24 release 24 hr metronidazole 0.75 % topical gel 1 applic topical BID 07/02/22 09/24/24 cholecalciferol (vitamin D3) 125 125 mcg PO DAILY 09/24/24 09/24/24 mcg (5,000 unit) tablet (Vitamin D3) Previous Rx's ?Medication ?Instructions ?Recorded albuterol sulfate 90 mcg/actuation 2 inh inhalation QID PRN shortness 09/24/24 aerosol inhaler (Ventolin HFA) of breath or wheezing #6.7 grams Allergies Allergy/AdvReac Type Severity Reaction Status Date / Time ciprofloxacin Allergy ALGY-Rash Verified 07/02/22 05:02 erythromycin base Allergy ALGY-Rash Verified 07/02/22 05:02 Penicillins Allergy ALGY-Rash Verified 07/02/22 05:02 Sulfa (Sulfonamide Allergy ALGY-Rash Verified 07/02/22 05:02 Antibiotics) Review of Systems Const: Denies: fever(s) or chills Card: Reports: chest pain Resp: Denies: dyspnea GI: Reports: abdominal pain, nausea and vomiting Musc: Denies: neck pain or back pain PFSH ED PFSH: Medical History No pertinent past medical history Social History Substance/Drug Use: never Physical Exam Const: COMMON NORMALS: no acute distress GENERAL APPEARANCE: cooperative and comfortable ORIENTATION/CONSCIOUSNESS: Yes awake, Yes oriented to person, Yes oriented to place and Yes oriented to time HENMT: COMMON NORMALS: normocephalic, atraumatic and hearing grossly normal bilaterally HEAD & SCALP: normocephalic and atraumatic Resp: COMMON NORMALS: normal respiratory effort, No retractions, No use of accessory muscles and clear to auscultation bilaterally AUSCULTATION: clear to auscultation bilaterally Cardio: COMMON NORMALS: regular rate, regular rhythm and No murmurs present (Cardio) RATE: regular rate RHYTHM: regular rhythm GI: COMMON NORMALS: Soft to palpation and No hepatosplenomegaly present AUSCULTATION: Yes normoactive bowel sounds PALPATION: Yes Soft to palpation, No Tenderness to palpation present (GI), No Guarding due to palpation present (GI) and Yes No hepatosplenomegaly present Extremity: COMMON NORMALS: normal to inspection, capillary refill normal, no clubbing, cyanosis or edema, no calf tenderness and no pedal edema Neuro: SENSORIUM/ORIENTATION: Yes oriented to person, Yes oriented to place and Yes oriented to time Skin: COMMON NORMALS: no rashes or lesions noted GENERAL SKIN EXAM: no rashes or lesions noted Course Vital Signs: Vital signs: Vital Signs Temperature 97.9 F 10/02/24 12:15 Pulse Rate 53 L 10/02/24 12:15 Respiratory Rate 16 10/02/24 12:15 Blood Pressure 163/58 10/02/24 12:15 Pulse Oximetry 98 10/02/24 12:15 Oxygen Delivery Me thod Room Air 10/02/24 12:15 MDM - Chest Pain Medical Decision Making Patient has STEMI on her EKG. Dr. Landaverde is seen evaluate the patient they are proceeding directly to Crew Person she was given heparin as well as Brilinta per Dr. Wall's request because of her allergy to aspirin. She is bradycardic but stable while in the emergency room blood pressure 163/58. Medical Records I reviewed the patient's medical records. No radiology studies performed this visit EKG Data EKG 1: Interpretation: EKG 10/02/2024 done in the emergency room room shows inferior ST elevation consistent with a STEMI with reciprocal changes. Rate of 63 HI interval 175 QTc 461. Compared to EKG 09/24/2024 significant change with the ST elevation from inferior myocardial infarction now present. Discharge Plan Discharge Patient Disposition: Admitted As Inpatient Clinical Impression: ST elevation myocardial infarction (STEMI) Condition: Stable Coding Level of Care Code ED Export Sales Manager for Bonifacio Hilario
--- NOTE | 2024-10-02 12:19 | PM.HP ---
Providers/Chief Complaint Admitting Physician: William Wall MD/ Cardiology Primary Care Provider: Shirley Chen APRN Chief Complaint: stemi alert History of Present Illness Oz Quintero is a 78 year old female with past medical history of diabetes, asthma who has presented with generalized weakness and epigastric discomfort. Symptoms started 2-3 hours prior to presentation. EKG is consistent with acute inferior wall ST elevation [place]. Cardiac Lobsterman has been activated and she is going for emergent cardiac catheterization with PCI. Review of Systems Const: Reports: chills, body aches and fatigue ENMT: Denies: throat pain or dental pain Card: Reports: chest pain Resp: Denies: dyspnea GI: Reports: nausea Musc: Denies: neck pain or back pain Medications/Allergies Home Medications ?Medication ?Instructions ?Recorded ?Confirmed ?Last Taken ?Type cyanocobalamin (vitamin B-12) 1,000 mcg IM Q30D 07/02/22 09/24/24 05/16/22 History 1,000 mcg/mL injection solution dapagliflozin propaned 5 1 tab PO DAILY 07/02/22 09/24/24 09/23/24 History mg-metformin ER 1,000 mg tablet, ext rel 24hr (Xigduo XR) furosemide 40 mg tablet 40 mg PO DAILY PRN Edema 07/02/22 09/24/24 Unknown History glipizide 10 mg tablet, extended 20 mg PO QAM 07/02/22 09/24/24 09/23/24 History release 24 hr metronidazole 0.75 % topical gel 1 applic topical BID 07/02/22 09/24/24 07/01/22 History albuterol sulfate 90 mcg/actuation 2 inh inhalation QID PRN shortness 09/24/24 Unknown Rx aerosol inhaler (Ventolin HFA) of breath or wheezing #6.7 grams cholecalciferol (vitamin D3) 125 125 mcg PO DAILY 09/24/24 09/24/24 09/23/24 History mcg (5,000 unit) tablet (Vitamin D3) Allergies Allergy/AdvReac Type Severity Reaction Status Date / Time ciprofloxacin Allergy ALGY-Rash Verified 07/02/22 05:02 erythromycin base Allergy ALGY-Rash Verified 07/02/22 05:02 Penicillins Allergy ALGY-Rash Verified 07/02/22 05:02 Sulfa (Sulfonamide Allergy ALGY-Rash Verified 07/02/22 05:02 Antibiotics) PFSH Acute PFSH: Medical History Diabetes No pertinent past medical history Social History Substance/Drug Use: never Vitals/I&O/Wt Last Vital Signs Temp 97.9 F 10/02/24 12:15 Pulse 53 L 10/02/24 12:15 Resp 16 10/02/24 12:15 BP 163/58 10/02/24 12:15 Pulse Ox 98 10/02/24 12:15 O2 Del Method Room Air 10/02/24 12:15 Weight last 48 hrs Weight 198 lb Physical Exam Narrative: GENERAL: Patient is alert, awake and oriented x3. HEART: Regular S1 and S2. Grade 2/6 systolic murmur LUNGS: Clear to auscultate bilaterally. CENTRAL NERVOUS SYSTEM: Grossly nonfocal. EXTREMITIES: Lower extremities without edema bilaterally. A&P Assessment and plan 1. STEMI (ST elevation myocardial infarction): 2. Diabetes: Plan: Patient has presented with acute inferior wall ST elevation [place]. Going emergently for cardiac catheterization with PCI. Has been loaded with Brilinta and heparin bolus given. Patient is allergic to aspirin. Will stay on monotherapy with Brilinta. She has diabetes. We will consult medicine team for help with medical management. We will obtain echocardiogram postprocedure. PDMP PDMP Reviewed: Not Reviewed Attestations Medical Necessity Statement*: Care expected to cross 2 midnights. Patient has presented with acute inferior wall ST elevation OK. Plan for emergent cardiac catheterization with PCI Coding Level of Care Code Acute Code for [facility] Diagnoses STEMI (ST elevation myocardial infarction) I21.3 Diabetes E11.9
[2024-10-02] MEDS: heparin 5,000 unit/mL INJ 1 mL 4000 UNIT IVP (12:21)
[2024-10-02 13:23] LABS: Troponin(5th) Baseline 31 ng/L (0-10)
--- NOTE | 2024-10-02 14:04 | PC.NURSE ---
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
--- NOTE | 2024-10-02 14:13 | ECG_ITS ---
[facility] Date: 2024-10[facility]02 Pat Name: Oz Quintero Department: Room: ICU12 Gender: Female Cardiopulmonary Physical Therapist: : 1945 Requested By: Vlad Calvillo Order Number: [id number] Reading MD: NICOLAS RUTLEDGE Measurements Intervals [place] Rate: 61 P: 61 ME: 177 QRS: -3 QRSD: 134 T: 76 QT: 462 QTc: 465 Interpretive Statements SINUS RHYTHM INDETERMINATE AXIS INTRAVENTRICULAR CONDUCTION DELAY [130+ ms QRS DURATION] Compared to ECG 10/02/2024 12:10:03 Indeterminate axis now present Sinus arrhythmia no longer present ST (T wave) deviation no longer present Myocardial infarct finding no longer present Electronically Signed On 10-05-2024 22:24:11 CDT by NICOLAS RUTLEDGE [email or web address] [id number]
--- NOTE | 2024-10-02 15:27 | PM.CONSULT ---
Providers/Reason For Consult Consulting Physician/Specialty*: Juan Car MD hospitalist Reason for Consult*: Diabetes Requesting Physician: William Wall MD Attending Physician: William Wall M.D Primary Care Provider: Eliud Moise MD History of Present Illness History of Present Illness Oz Quintero is a 78 year old female says she lives in [place] and this morning did not feel good so went to see her PCP Dr. Moise who took an EKG which concerned him and he sent her by ambulance to the hospital. EKG showed STEMI based on ST segment elevation in 2 3 and aVF patient had thrombotic occlusion of the mid RCA and this was treated with 2 stents. She has history of aspirin allergy so will be treated with Brilinta monotherapy. Patient states her diabetic regimen is oral Xigduo XR and glipizide 10 mg 1 a morning. She states the 2 a morning she is not taking. Patient states her blood sugars show A1c 7.1 prior to taking for asthma albuterol and prednisone which raised her A1c to 7.3. She has had diabetes for 10 years lives with her and blood sugars typically run 127-147 but currently more like to 37 with prednisone. 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 She was never a smoker or alcohol user. She does eat sugar including cake cookies on occasion. She also drinks occasional Sprite but not soda every day. She does not drink diet sodas. She is willing to make a change Medications/Allergies Home Medications ?Medication ?Instructions ?Recorded ?Confirmed ?Last Taken ?Type cyanocobalamin (vitamin B-12) 1,000 mcg IM Q30D 07/02/22 09/24/24 05/16/22 History 1,000 mcg/mL injection solution dapagliflozin propaned 5 1 tab PO DAILY 07/02/22 09/24/24 09/23/24 History mg-metformin ER 1,000 mg tablet, ext rel 24hr (Xigduo XR) furosemide 40 mg tablet 40 mg PO DAILY PRN Edema 07/02/22 09/24/24 Unknown History glipizide 10 mg tablet, extended 20 mg PO QAM 07/02/22 09/24/24 09/23/24 History release 24 hr metronidazole 0.75 % topical gel 1 applic topical BID 04/09/24/24 07/01/22 History albuterol sulfate 90 mcg/actuation 2 inh inhalation QID PRN shortness 09/24/24 Unknown Rx aerosol inhaler (Ventolin HFA) of breath or wheezing #6.7 grams cholecalciferol (vitamin D3) 125 125 mcg PO DAILY 09/24/24 09/24/24 09/23/24 History mcg (5,000 unit) tablet (Vitamin D3) Allergies Allergy/AdvReac Type Severity Reaction Status Date / Time ciprofloxacin Allergy ALGY-Rash Verified 07/02/22 05:02 erythromycin base Allergy ALGY-Rash Verified 07/02/22 05:02 Penicillins Allergy ALGY-Rash Verified 07/02/22 05:02 Sulfa (Sulfonamide Allergy ALGY-Rash Verified 07/02/22 05:02 Antibiotics) Current Medications Generic Name Dose Route Start Last Admin Trade Name Freq PRN Reason Stop Dose Admin Sodium Chloride 1,000 mls @ 100 mls/hr 10/02/24 13:30 10/02/24 14:17 Sodium Chloride 0.9% IV 100 mls/hr .Q10H MATT Administration PFSH Acute PFSH: Medical History (Updated 10/02/24 @ 13:28 by CLAUDETTE Bronson) Diabetes No pertinent past medical history Social History Substance/Drug Use: never Vitals/I&O/Wt Last Vital Signs Temp 97.9 F 10/02/24 12:15 Pulse 69 10/02/24 14:30 Resp 37 H 10/02/24 14:30 BP 97/57 10/02/24 14:30 Pulse Ox 93 10/02/24 14:15 O2 Del Method Room Air 10/02/24 12:15 Weight last 48 hrs Weight 89.811 kg Physical Exam Narrative: General well-developed well-nourished overweight female in no acute cardiopulmonary stress CV regular rate and rhythm Lungs clear to auscultation bilaterally Abdomen positive bowel tones soft nontender Calves trace ankle edema A&P Assessment and plan 1. Diabetes: Start sliding scale insulin low scale before every meal and nightly. Start glipizide 10 mg twice daily. Hold metformin due to recent angiogram. Start 1500-calorie ADA diet 2. STEMI (ST elevation myocardial infarction): Patient had 2 drug-eluting stents and angiogram today. Hold metformin. Continue with Brilinta, atorvastatin and subcu Lovenox for DVT prophylaxis PDMP PDMP Reviewed: Not Reviewed Coding Level of Care Code 15475 Diagnoses Diabetes E11.9 STEMI (ST elevation myocardial infarction) I21.3 Time Spent (min) 45
--- NOTE | 2024-10-02 15:42 | USCV_ITS ---
Oz Quintero Age: 78 Gender: F : 1945 Exam Date: 10/02/2024 17:32 Ordering Phys: Lulu Nguyễn Technologist: PATRICK [place] [facility] [place]: STEMI s/p cardiac catheterization. History of DM, asthma BP: 97 / 37 HR: 67 Rhythm: Sinus Technical Quality: Adequate MEASUREMENTS (Male / Female) Normal Values 2D ECHO LV Diastolic Diameter PLAX 4.0 cm 4.2 - 5.9 / 3.9 - 5.3 cm IVS Diastolic Thickness 1.2 cm 0.6 - 1.0 / 0.6 - 0.9 cm IVS Systolic Thickness 1.6 cm LVPW Diastolic Thickness 1.1 cm 0.6 - 1.0 / 0.6 - 0.9 cm LVPW Systolic Thickness 1.5 cm LVOT Diameter 2.0 cm LV Ejection Fraction 2D Teich 63.7 % LV Ejection Fraction MOD 4C 64.0 % LV Ejection Fraction MOD 2C 59.8 % LV Ejection Fraction 2C AL 61.9 % LA Diameter 2.0 cm Aorta at Sinotubular Diameter 2.8 cm IVC Diameter 0.7 cm M-MODE LA Ao Ratio MM 0.7 AV Cusp Separation MM 1.6 cm DOPPLER AV Peak Velocity 142.0 cm/s LVOT Peak Velocity 83.0 cm/s AV Area Cont Eq vti 2.0 cm squared AV Area Cont Eq pk 1.8 cm squared MV Peak Velocity 120.0 cm/s MV Area PHT 2.5 cm squared Mitral E to A Ratio 0.7 TV Peak E Velocity 42.0 cm/s PV Peak Velocity 97.0 cm/s FINDINGS Left Ventricle Normal left ventricular size. Severe hypokinesis of the inferolateral wall with overall normal ejection fraction of 59%. Mild concentric left ventricular hypertrophy. Elevated E/e'ratio consistent with increased LV filling pressure. Right Ventricle Normal right ventricular size and systolic function Right Atrium Normal right atrial size Left Atrium Normal left atrial size Mitral Valve Normal mitral valve function Aortic Valve Normal aortic valve function Tricuspid Valve Normal tricuspid valve function. Unable to assess pulmonary pressure due to lack of tricuspid valve regurgitation jet Pulmonic Valve Normal pulmonic valve function Pericardium No pericardial effusion Aorta Normal aortic root size IVC Normal IVC size CONCLUSIONS 1. Abnormal left ventricular systolic function with hypokinesis of the inferolateral wall but overall normal ejection fraction of 59% 2. No significant valvular abnormalities Mark Madrid MD, FACC (Electronically Signed) Final Date: 02 October 2024 19:14 S
[2024-10-02 16:13] LABS: Troponin 5 2HR 181.5 ng/L (0-10); Troponin 5 2HR Delta 150.5 ABS# (0-10)
--- NOTE | 2024-10-02 18:13 | ECG_ITS ---
[facility]: 2024-10-02 Pat Name: Oz Quintero Department: Room: ICU12 Gender: Female Pin Attacher: : 1945 Requested By: Vlad Calvillo Order Number: [id number] Reading MD: NICOLAS RUTLEDGE Measurements Intervals [place] Rate: 71 P: 73 FL: 166 QRS: -60 QRSD: 137 T: 74 QT: 419 QTc: 457 Interpretive Statements SINUS RHYTHM INDETERMINATE AXIS RIGHT BUNDLE BRANCH BLOCK [120+ ms QRS DURATION, UPRIGHT V1, 40+ ms S IN I/aVL/V4/V5/V6] Compared to ECG 10/02/2024 14:27:08 Right bundle-branch block now present Intraventricular conduction delay no longer present Electronically Signed On 10-05-2024 22:23:46 CDT by NICOLAS RUTLEDGE [email or web address] [id number]
[2024-10-02 18:22] LABS: Partial Thromboplastin Time 64.0 SECONDS (23.9-36.7)
[2024-10-02 19:24] LABS: Troponin 5 6HR 460.5 ng/L (0-10); Troponin 5 6HR Delta 429.5 ng/L (0-12)
[2024-10-02 21:59] LABS: Partial Thromboplastin Time 24.8 SECONDS (23.9-36.7)
[2024-10-02] MEDS: fentaNYL 50 mcg/mL INJ 2mL IVP (23:57)
[2024-10-03] VITALS (10 sets, daily range): BP systolic 128–140; BP diastolic 61–67; PULSE 62–75; RESP 14–41; TEMP 36.3–36.8; O2SAT 92–98
[2024-10-03 02:35] LABS: Hematocrit 39.2 % (36-47); Hemoglobin 13.20 g/dL (11.27-16.99); Mean Corpuscular HGB Conc 33.7 g/dL (30-55); Mean Corpuscular Hemoglobin 30.6 pg (27-33); Mean Corpuscular Volume 90.7 fl (85-98); Nucleated Red Blood Cells % 0 %; Platelet Count 172 10^3/cmm (157-399); Red Blood Count 4.32 10^6/uL (3.85-5.65); White Blood Count 11.38 10^3/uL (3.29-11.43)
[2024-10-03 04:50] LABS: Blood Urea Nitrogen 17 mg/dL (8-23); Calcium 8.6 mg/dL (8.5-10.5); Carbon Dioxide 27 mmol/L (22-29); Chloride 102 mmol/L (98-107); Creatinine Clr Calc Pharmacy 64.1590; Glucose 101 mg/dL (65-115); Osmolality Calculated 290 mOsm/kg (285-295); Sodium 139 mmol/L (136-145)
[2024-10-03 06:06] LABS: Anion Gap 15.0 (5-19); Potassium 5.0 mmol/L (3.5-5.1)
--- NOTE | 2024-10-03 11:30 | P.PN_ITS ---
Subjective 2 Subjective: Patient states she is feels fine and had no chest pain overnight. Blood sugars are improved. I increased her to twice a day sulfonylurea in the form of Amaryl 2 mg twice a day because we did not have the glipizide 10 mg tablets. Patient is counseled regarding carbohydrates and triglycerides and saturated fats and cholesterol. She is interested in modifying her diet to preserve her coronary arteries. Was not aware of high fructose corn syrup and sugar and sweetened drinks. She is not aware of caloric counting. She is agreeable to weight loss and her who had defibrillator and heart disease says he is on a 1500-calorie diet and appears to be supported at bedside. His name is Rajiv Vitals/I&O/Wt Last Vital Signs Temp 97.4 F L 10/03/24 08:00 Pulse 68 10/03/24 10:32 Resp 23 H 10/03/24 10:00 BP 137/63 10/03/24 10:00 Pulse Ox 94 10/03/24 10:32 O2 Del Method Room Air 10/03/24 10:32 O2 Flow Rate 2 10/03/24 08:00 10/02/24 10/03/24 10/03/24 22:59 06:59 14:59 Intake Total 1401.667 / 1401.667 495 / 1896.667 300 / 300 Balance 1401.667 / 1401.667 495 / 1896.667 300 / 300 Weight last 48 hrs Weight 85 kg Weight 89.811 kg Physical Exam 2 Narrative: General well-developed well-nourished overweight female in no acute cardiopulmonary stress CV regular rate and rhythm Lungs clear to auscultation bilaterally Abdomen positive bowel tones soft nontender Calves trace ankle edema Data 10/03/24 02:28 10/03/24 02:28 A&P Assessment and plan 1. Diabetes: Upon discharge I would resume glipizide 10 mg twice a day. We discussed that she is on Amaryl 2 mg twice a day and this should be equivalent. Start 1500- calorie ADA diet. Recommended patient obtain an franklin for calorie counting. Resume Xigduo 2 days after discharge. If blood sugars are running low on the decreased diet decrease glipizide back to 10 mg daily. Additionally patient has not had thyroid cancer or pancreatitis and is not an alcoholic. She should consider discussion for GLP-1 agonist with her primary care physician as that should be covered by insurance with her having diabetes obesity and heart disease. 2. STEMI (ST elevation myocardial infarction): Patient had 2 drug-eluting stents and angiogram today. Hold metformin. Continue with Brilinta, atorvastatin and subcu Lovenox for DVT prophylaxis PDMP PDMP Reviewed: Not Reviewed Attestations 2 Medical Necessity Statement*: Further length of stay to be determined by patient's attending physician Coding Level of Care Code 15647 Diagnoses Diabetes E11.9 STEMI (ST elevation myocardial infarction) I21.3 Time Spent (min) 35
--- NOTE | 2024-10-03 15:39 | PC.NURSE ---
Discharge instructions given and medications delivered to bedside. Discharged home with .
--- NOTE | 2024-10-03 16:43 | P.DS_ITS ---
<Statement entered by William Wall M.D - 10/05/24 12:09> Patient was cared for in conjunction with an advanced practice practitioner.? I reviewed the chart and all pertinent data including imaging, telemetry, and laboratory results.? I discussed the patient in detail with the advanced practice practitioner.? Please see?their note for discharge summary, testing results and agreed upon plan of care for the patient. Discharge Providers Date of Admission: 10/02/24 13:04 Date of Discharge: October 03, 2024 Attending Provider at Admission: Juan Car MD Attending Provider at Discharge: William Wall M.D Primary Care Provider: Eliud Moise MD Diagnoses at Discharge Discharge Diagnosis 1. Diabetes: 2. STEMI (ST elevation myocardial infarction): Reason for Visit Reason for Visit: stemi alert Brief History: Oz Quintero is a 78 year old female with past medical history of diabetes, asthma who has presented with generalized weakness and epigastric discomfort. Symptoms started 2-3 hours prior to presentation. EKG is consistent with acute inferior wall ST elevation MD. Cardiac Deputy Attorney General has been activated and she is going for emergent cardiac catheterization with PCI. Hospital Course Hospital Course She underwent coronary angiogram 10/02/2024 finding no significant disease of the left main, mild to moderate diffuse disease of the left circumflex, very distally subtotal occlusion, mid RCA total thrombotic occlusion, mid LAD moderate 50% stenosis, distal RCA 80% stenosis. The thrombotic occlusion of the mid RCA was treated with balloon angioplasty and FLOR x 1, the distal RCA significant stenosis treated with balloon angioplasty and FLOR x 1. Due to aspirin allergy she will continue Brilinta as monotherapy, 90 mg twice a day. She was treated with Aggrastat postprocedure. She was also started on atorvastatin 40 mg daily. She has done well overnight, remains in sinus rhythm today with normal blood pressures. She ambulated from the bed to the chair in the bathroom in the ICU, no bleeding or oozing at the right femoral cath site; she does have some bruising without hematoma. No pain in the right leg. She will discharge home today, follow-up with cardiology clinic in 7 to 10 days. Utilized meds to beds for Brilinta to ensure constant supply. It was discussed with her the importance of not missing a single dose of Brilinta for any reason. Physical Exam Const: COMMON NORMALS: no acute distress and patient oriented x3 GENERAL AP PEARANCE: cooperative ORIENTATION/CONSCIOUSNESS: Yes awake, Yes oriented to person, Yes oriented to place and Yes oriented to time Chest: COMMONS NORMALS: normal inspection of the chest and normal palpation of entire chest wall CHEST: Yes Symmetrical chest wall rise Resp: COMMON NORMALS: normal respiratory effort, No retractions, No use of accessory muscles and clear to auscultation bilaterally AUSCULTATION: clear to auscultation bilaterally Cardio: COMMON NORMALS: regular rate, regular rhythm, S1 normal heart sound present, S2 normal heart sound present, No gallops present (Cardio), No clicks present (Cardio), No murmurs present (Cardio) and No rub (Cardio) RATE: regular rate RHYTHM: regular rhythm HEART SOUNDS: S1 normal heart sound present and S2 normal heart sound present PERIPHERAL PULSES: radial pulses present positive right 2+ and femoral pulses present positive right 2+ Neuro: COMMON NORMALS: patient oriented x3 and moves all extremities SENSORIUM/ORIENTATION: Yes oriented to person, Yes oriented to place and Yes oriented to time Skin: WOUNDS: Yes surgical site (no hematoma palpable) Details: no odor Discharge Data Studies Completed and Pending Completed Studies During Hospitalization Category Date Time Status PHYSIOTHERAPY AIDE request for service Stat Exams 10/02/24 12:13 Completed CV. echo complete* [id number] Routine Ultrasound 10/02/24 15:42 Completed Laboratory Results WBC 11.38 10^3/uL (3.29-11.43) 10/03/24 02:28 RBC 4.32 10^6/uL (3.85-5.65) 10/03/24 02:28 Hgb 13.20 g/dL (11.27-16.99) 10/03/24 02:28 Hct 39.2 % (36-47) 10/03/24 02:28 MCV 90.7 fl (85-98) 10/03/24 02:28 MCH 30.6 pg (27-33) 10/03/24 02:28 MCHC 33.7 g/dL (30-55) 10/03/24 02:28 RDW 13.1 % (12.1-15.1) 10/03/24 02:28 Plt Count 172 10^3/cmm (157-399) 10/03/24 02:28 MPV 9.0 fL (7.4-10.4) 10/03/24 02:28 Neut % (Auto) 80.0 % 10/03/24 02:28 Lymph % (Auto) 11.8 % 10/03/24 02:28 [place] % (Auto) 7.4 % 10/03/24 02:28 Eos % (Auto) 0.2 % 10/03/24 02:28 Baso % (Auto) 0.2 % 10/03/24 02:28 Neut # (Auto) 9.11 10^3/uL (1.8-7.7) H 10/03/24 02:28 Lymph # (Auto) 1.3 10^3/uL (0.8-4.8) 10/03/24 02:28 [place]son # (Auto) 0.8 10^3/uL (0.2-0.9) 10/03/24 02:28 Eos # (Auto) 0.0 10^3/uL (0.0-0.8) 10/03/24 02:28 Baso # (Auto) 0.0 10^3/uL (0.0-0.1) 10/03/24 02:28 Nucleated RBC % (auto) 0 % 10/03/24 02: Nucleated RBCs # 0.0 /100WBC 10/03/24 02:28 APTT 24.8 SECONDS (23.9-36.7) D 10/02/24 21:07 Sodium 139 mmol/L (136-145) 10/03/24 02:28 Potassium 5.0 mmol/L (3.5-5.1) 10/03/24 02:28 Chloride 102 mmol/L (98-107) 10/03/24 02:28 Carbon Dioxide 27 mmol/L (22-29) 10/03/24 02:28 Anion Gap 15.0 (5-19) 10/03/24 02:28 BUN 17 mg/dL (8-23) 10/03/24 02:28 Creatinine 0.7 mg/dL (0.5-0.9) 10/03/24 02:28 GFR Calculation Not Reportable 10/03/24 02:28 Glucose 101 mg/dL (65-115) 10/03/24 02:28 POC Glucose 118 mg/dL (70-110) H 10/03/24 11:12 Calculated Osmolality 290 mOsm/kg (285-295) 10/03/24 02:28 Calcium 8.6 mg/dL (8.5-10.5) 10/03/24 02:28 Troponin T Baseline 31 ng/L (0-10) H 10/02/24 12:59 Troponin T 120 Minute 181.5 ng/L (0-10) H 10/02/24 15:30 Delta Troponin T 150.5 ABS# (0-10) H* 10/02/24 15:30 Troponin T Hi Sens 6Hr 460.5 ng/L (0-10) H 10/02/24 18:57 Troponin T Hi Sens 6Hr Delta 429.5 ng/L (0-12) H* 10/02/24 18:57 Vitals Last Vital Signs Temp 98.2 F 10/03/24 12:00 Pulse 75 10/03/24 15:28 Resp 14 10/03/24 15:28 BP 140/67 10/03/24 15:28 Pulse Ox 94 10/03/24 15:28 O2 Del Method Room Air 10/03/24 14:00 O2 Flow Rate 2 10/03/24 08:00 Discharge Plan Discharge Patient Disposition: Home Condition: Stable Prescriptions: New atorvastatin 40 mg Tablet 40 mg PO BEDTIME Qty: 90 1RF ticagrelor [Brilinta] 90 mg Tablet 90 mg PO BID Qty: 180 3RF Continued cholecalciferol (vitamin D3) [Vitamin D3] 125 mcg (5,000 unit) Tablet 125 mcg PO DAILY albuterol sulfate [Ventolin HFA] 90 mcg/actuation HFA aerosol inhaler 2 inh inhalation QID PRN (Reason: shortness of breath or wheezing) Qty: 6.7 0RF furosemide 40 mg tablet 40 mg PO DAILY PRN (Reason: Edema) glipizide 10 mg tablet extended release 24hr 20 mg PO QAM cyanocobalamin (vitamin B-12) 1,000 mcg/mL solution 1,000 mcg IM Q30D metronidazole 0.75 % gel 1 applic TOPICAL BID dapaglifloz propaned-metformin [Xigduo XR] 5-1,000 mg tablet, IR - ER, biphasic 24hr 1 tab PO DAILY Hardware Sales Assistant OK for DC: Hospitalist Discharge Order = DC NOW: Discharge Order (Routine); Ordered 10/03/24 Ordered By: Lulu Nguyễn Referrals: Denae Cano NP [Nurse Practitioner, Cardiology] - 7-10 days Referral Note: Friday, October 11, 2024 at 1:30 p.m. Eliud Moise MD [Primary Care Provider, Internal Medicine] - 1 week Referral Note: Thursday, October 10, 2024 at 1:20 p.m. Discharge Diet: Cardiac Discharge Activity: Increase activity as tolerated Patient Instructions: Atorvastatin (By mouth) (Lipitor, Atorvaliq), Ticagrelor (By mouth) (Brilinta), Heart Catheterization (DC), Opioid Safety, Patient Portal & [place] Instructions Activity Restrictions/Additional Instructions: No lifting over 5 pounds for the next 4 days. Discharge Date/Time: 10/03/24 15:39 Discharge Attestations Time Spent in Discharge Care*: less than 30 min Quality Metrics Clinical Quality Measures [ Acute Myocardial Infaction { Clinical Trial Participant: No; Contraindication to aspirin: Drug allergy; Contraindication to statin: None; Statin prescribed; Contraindication to PCI: None; PCI performed;}] Coding Level of Care Code Acute Code for [facility] Fwd Diagnoses Diabetes E11.9 STEMI (ST elevation myocardial infarction) I21.3
== END 2024-10-03 15:39 | disposition home or self-care (01) | DRG 322 ==
LOC: ER 12:13 → CDL 12:17 → ICU 13:05
PROVIDERS: Nurse Practitioner Family; Admitting Provider Internal Medicine; Emergency Provider Family Medicine; PCP Internal Medicine; Visit Provider Internal Medicine
PROC: 027035Z Dilation of Coronary Artery, One Artery with Two Drug-eluting Intraluminal Devices, Percutaneous Approach (ICD-10-PCS; principal; 2024-10-02 12:30)
PROC: 027035Z Dilation of Coronary Artery, One Artery with Two Drug-eluting Intraluminal Devices, Percutaneous Approach (ICD-10-PCS; 2024-10-02 12:30)
DX: I21.11 ST elevation (STEMI) myocardial infarction involving right coronary artery (principal); E11.9 Type 2 diabetes mellitus without complications; J45.909 Unspecified asthma, uncomplicated; Z79.84 Long term (current) use of oral hypoglycemic drugs; Z79.02 Long term (current) use of antithrombotics/antiplatelets; Z88.6 Allergy status to analgesic agent
CPT/HCPCS: 36415; 36416; 80048; 82962; 84484; 85025; 85347; 85730; 93005; 93306; 93454; 96372; 96374; 99152; 99153; 99285; 99291; C1725; C1769; C1874; C1887; C1894; C9606; J0461; J1644; J1650; J1815; J2250; J2405; J3010; J3490; J7030; J9999; Q9967

== ENCOUNTER → 2024-10-12 13:48 | Outpatient (BNVA) | payer MEDICARE, BC, SELFPAY | PROVIDERS: PCP Internal Medicine; Visit Provider Nurse Practitioner Family | DX: I25.10 Atherosclerotic heart disease of native coronary artery without angina pectoris (principal); I95.9 Hypotension, unspecified; E16.2 Hypoglycemia, unspecified; Z95.5 Presence of coronary angioplasty implant and graft; I25.2 Old myocardial infarction | CPT/HCPCS: 36415; 80053; 85025; 99213 ==

== ENCOUNTER 2024-12-05 14:01 | Outpatient (CLI) | payer MEDICARE, BC, SELFPAY ==
--- NOTE | 2024-12-05 14:11 | MM_ITS ---
WS: [id number] BILATERAL 3D TOMOSYNTHESIS DIGITAL SCREENING MAMMOGRAPHY WITH CAD CLINICAL INFORMATION: SCREENING HISTORY: Screening mammogram. No current complaints. COMPARISON: 2022 TECHNIQUE: Bilateral CC and MLO views. FINDINGS: Scattered fibroglandular densities bilaterally. No suspicious focal mass, asymmetry, calcifications, or architectural distortion. No evidence of malignancy. Dystrophic calcifications LEFT greater than RIGHT breast. Vascular calcifications. MM/MM scr tomosynthesis [id number] IMPRESSION: DENSITY: There are scattered areas of fibroglandular density. BI-RADS: 2 - Benign. FOLLOW UP: 1 Year Follow-up Recommend return to annual screening mammography.
== END 2024-12-05 14:02 | disposition home or self-care (01) ==
LOC: RAD 14:04
PROVIDERS: PCP Internal Medicine; Visit Provider Internal Medicine
DX: Z12.31 Encounter for screening mammogram for malignant neoplasm of breast (principal); R92.323 Mammographic fibroglandular density, bilateral breasts; R92.1 Mammographic calcification found on diagnostic imaging of breast
CPT/HCPCS: 77063; 77067

== ENCOUNTER → 2025-01-15 13:58 | Outpatient (BNVA) | payer MEDICARE, BC, SELFPAY | PROVIDERS: PCP Internal Medicine; Visit Provider Internal Medicine | DX: I25.10 Atherosclerotic heart disease of native coronary artery without angina pectoris (principal); Z95.5 Presence of coronary angioplasty implant and graft | CPT/HCPCS: 99214 ==